=== PATIENT | male | born 1970 | race Two or more races ===

== ENCOUNTER → 2025-03-14 | Outpatient (CLI) | payer MEDICAID ==
[~2025-03-14] VITALS: Ht 165.1 cm; Wt 54.4 kg
[~2025-03-14] MED LIST: REGADENOSON 0.4 MG/5 ML SYRG IV ONE
--- NOTE | 2025-03-14 12:55 | DVHSR ---
APPROVED REPORT Exam: Nuclear Stress Test BMI: 0 Stress Test Details HR Max Heart Rate (APMHR): 165.190209 bpm Target HR (85% APMHR): 140.553280 bpm BP ECG Stress ECG Conclusion lvef 55% inferior wall mild rerversible defect gi artifact noted NM EXAM: Myocardial Perfusion REST/STRESS Imaging Protocol: Rest Tc-99m/Stress Tc-99m 1 day Resting Data Rest SPECT myocardial perfusion imaging was performed in supine position 45 minutes following the int ravenous injection of 11.5 mCi of Tc-99m Sestamibi. Time of rest injection: 09:15 Date: 03/14/2025 Time of rest imagin:00 Date: 03/14/2025 Administration Route: IV Administration Site: Left AC Pharmacologic Stress Pharmacologic stress test was performed by injecting Regadenoson 0.4 mg IV push followed by the intra venous injection of 30.9 mCi of Tc-99m Sestamibi. Time of stress injection: 10:40 Date: 03/14/2025 Time of stress imagin:10 Date: 03/14/2025 Administration Route: IV Administration Site: Left AC Gated Stress SPECT was performed 90 minutes after stress injection. The images were gated to evaluate regional wall motion and calculate left ventricular ejection fracti on. Stress only was performed in the Supine position. Study Quality Study: false Nuclear Conclusion Nuclear Findings: positive for ischemia lvef 55% inferior wall mild rerversible defect gi artifact noted
== END | disposition home or self-care (01) ==
LOC: XYW 09:54
PROVIDERS: ATTEND Specialist
DX: I25.9 Chronic ischemic heart disease, unspecified (principal); R07.9 Chest pain, unspecified; R00.2 Palpitations; I10 Essential (primary) hypertension; R42 Dizziness and giddiness
CPT/HCPCS: 78452; 93017; A9500; J2785

== ENCOUNTER 2025-04-21 23:47 | Inpatient (IN) | payer MEDICAID ==
[~2025-04-21] VITALS: Ht 167.6 cm; Wt 60.5 kg
[~2025-04-21 23:47] MED LIST changes: +ATOR20TA50 PO; -REGADENOSON 0.4 MG/5 ML SYRG IV ONE; +SPIR25TA8 PO; +TRIA37.586 PO
[2025-04-22 00:09] LABS: Hemoglobin 13.9 g/dL (13.5-17.5); Nucleated Red Blood Cells % 0.1 %
[2025-04-22 00:11] LABS: Hematocrit 41.8 % (41.0-53.0); Mean Corpuscular Hemoglobin 33.8 pg (28.0-32.0); Mean Corpuscular Volume 101.6 fL (80.0-100.0)
[2025-04-22 00:20] LABS: Chloride 102 mmol/L (98-107); Potassium 3.5 mmol/L (3.5-5.1); Sodium 139 mmol/L (136-145)
[2025-04-22 00:21] LABS: Anion Gap 10 (5-15); Calcium 9.1 mg/dL (8.7-10.4); Carbon Dioxide 27 mmol/L (20-31)
[2025-04-22 00:26] LABS: BUN/Creatinine Ratio 14.3 (10.0-20.0); Blood Urea Nitrogen 10 mg/dL (9-23); Glucose 104 mg/dL (74-106)
--- NOTE | 2025-04-22 00:48 | DVH ---
CHEST RADIOGRAPH Indication: cp Technique: Single frontal view of the chest was obtained COMPARISON: None FINDINGS: Lines and Tubes: None Lungs: Clear Pleura: No effusion. No pneumothorax. Cardiomediastinal contours: Unremarkable Bones: Unremarkable IMPRESSION: 1. No acute disease.
--- NOTE | 2025-04-22 03:46 | ED.PDOC ---
HPI Comments 55-year-old male with a history of hypertension, CAD and CHF brought in by EMS from home complaining of chest pain and epigastric pain. Patient states the chest pain started this morning around 930, described as pinching, intermittent, left-sided, associated with shortness a breath, nausea and vomiting. Patient also reports ongoing epigastric pain which is described as pressure-like, worse after eating, radiating to the mid esophageal region, and states that it feels like food does not go down and become stuck after he eats. He denies diarrhea, constipation or dysuria. EMS administered aspirin 325 mg p.o. and sublingual nitroglycerin which transiently improved the patient's chest pain, however patient states the chest pain has returned. Chief Complaint: Chest Pain Time Seen by MD: 00:00 Reviewed Notes: Nurses Notes Allergies: Coded Allergies: NO KNOWN ALLERGIES (Unverified , 03/14/25) Information Source: Patient Mode of Arrival: EMS Severity: Moderate Timing: Hours Duration: Since onset Past Medical History PAST MEDICAL HISTORY: CAD, CHF, HTN Past Medical History (Other): Gallbladder polyps Family History Family History: Reviewed,noncontributory to illness Social History Smoker: Non-Smoker Alcohol: Denies ETOH Use Drugs: Denies Drug Use Lives In: Home Constitutional: denies: chills, diaphoresis, fatigue, fever, malaise, sweats, weakness, others EENTM: denies: blurred vision, double vision, ear bleeding, ear discharge, ear drainage, ear pain, ear ringing, eye pain, eye redness, hearing loss, mouth pain, mouth swelling, nasal discharge, nose bleeding, nose congestion, nose pain, photophobia, tearing, throat pain, throat swelling, voice changes, others Respiratory: reports: SOB at rest, shortness of breath; denies: cough, h emoptysis, orthopnea, SOB with excertion, stridor, wheezing, others Cardiovascular: reports: chest pain; denies: dizzy spells, diaphoresis, Dyspnea on exertion, edema, irregular heart beat, left arm pain, lightheadedness, palpitations, PND, syncope, others Gastrointestinal: reports: nausea, vomiting; denies: abdomen distended, abdominal pain, blood streaked bowels, constipated, diarrhea, dysphagia, dif ficulty swallowing, hematemesis, melena, poor appetite, poor fluid intake, rectal bleeding, rectal pain, others Genitourinary: denies: burning, dysuria, flank pain, frequency, hematuria, incontinence, penile discharge, penile sore, pain, testicle pain, testicle swelling, urgency, others Neurological: denies: dizziness, fainting, headache, left sided numbness, left sided weakness, numbness, paresthesia, pre-existing deficit, right sided numbness, right sided weakness, seizure, speech problems, tingling, tremors, weakness, others Musculoskeletal: denies: back pain, gout, joint pain, joint swelling, muscle pain, muscle stiffness, neck pain, others Integumetry: denies: bruises, change in color, change in hair/nails, dryness, laceration, lesions, lumps, rash, wounds, others Allergic/Immunocompromised: denies: Difficulty Healing, Frequent Infections, Hives, Itching, others Hematologic/Lymphatic: denies: anemia, blood clots, easy bleeding, easy bruising, swollen glands, others Endocrine: denies: excessive hunger, excessive sweating, excessive thirst, excessive urination, flushing, intolerance to cold, intolerance to heat, unexplained weight gain, unexplained weight loss, others All Other Systems: Reviewed and Negative (Comprehensive systems review obtained and negative except for what is stated in the HPI.) Physical Exam General Appearance: No Apparent Distress HEENT: Other (Pupils and face symmetric. Moist mucous membranes.) Neck: Full Range of Motion, Normal Inspection Respiratory: Lungs Clear, No Accessory Muscle Use, No Respiratory Distress, Normal Breath Sounds Cardiovascular: No Edema, No JVD, Regular Rate/Rhythm Breast Exam: Deferred Gastrointestinal: Epigastric, Soft, Tenderness (Mild epigastric tenderness to palpation) Genitalia: Deferred Pelvic: Deferred Rectal: Deferred Extremities: Normal inspection, Normal range of motion, Non-tender, No pedal edema Neurologic: Alert (Oriented x4), Normal Affect, Normal Mood, Other (Ambulatory) Cerebellar Function: NOT DONE Reflexes: NOT DONE Skin: Dry, Normal Color, Warm Lymphatic: NOT DONE EKG EKG : Comments Sinus rhythm, rate 70, normal NH and QRS intervals, QTC 484, normal axis, normal QRS, nonspecific T change Was a procedure done? Was a procedure done?: No CP Differential Dx Differential Diagnosis: Angina, Anxiety / Panic Attack, Heart Failure, [place], Pulmonary Embolus Differential Diagnosis: Chest Wall Pain, Esophageal reflux/spasm, Gastritis, Pericarditis, Pneumonia X-Ray, Labs, Meds, VS Vital Signs Date Time Temp Pulse Resp B/P (MAP) Pulse Ox O2 Delivery O2 Flow Rate FiO2 04/21/25 23:53 70 04/21/25 23:53 98.7 68 17 162/103 98 98.7 Lab Test 04/22/25 00:44 04/22/25 00:00 Range/Units Troponin I High Sensitivity 24 26 </=54 ng/L White Blood Count 9.0 4.4-10.8 10^3/uL Red Blood Count 4.11 L 4.5-5.90 10^6/uL Hemoglobin 13.9 13.5-17.5 g/dL Hematocrit 41.8 41.0-53.0 % Mean Corpuscular Volume 101.6 H 80.0-100.0 fL Mean Corpuscular Hemoglobin 33.8 H 28.0-32.0 pg Mean Corpuscular Hemoglobin Concent 33.3 32.0-36.0 g/dL Red Cell Distribution Width 16.8 H 11.8-14.3 % Platelet Count 366 140-450 10^3/uL Mean Platelet Volume 6.6 L 6.9-10.8 fL Neutrophils (%) (Auto) 68.5 37.0-80.0 % Lymphocytes (%) (Auto) 23.7 10.0-50.0 % Monocytes (%) (Auto) 5.6 0.0-12.0 % Eosinophils (%) (Auto) 0.1 0.0-7.0 % Basophils (%) (Auto) 2.1 H 0.0-2.0 % Neutrophils # (Auto) 6.2 1.6-8.6 10 ^3/uL Lymphocytes # (Auto) 2.1 0.4-5.4 10 ^3/uL Monocytes # (Auto) 0.5 0-1.3 10 ^3/uL Eosinophils # (Auto) 0 0-0.8 10 ^3/uL Basophils # (Auto) 0.2 0-0.2 10 ^3/uL Nucleated Red Blood Cells 0.1 % Sodium Level 139 136-145 mmol/L Potassium Level 3.5 3.5-5.1 mmol/L Chloride Level 102 98-107 mmol/L Carbon Dioxide Level 27 20-31 mmol/L Anion Gap 10 5-15 Blood Urea Nitrogen 10 9-23 mg/dL Creatinine 0.70 0.700-1.30 mg/dL Glomerular Filtration Rate Calc 108 >90 mL/min BUN/Creatinine Ratio 14.3 10.0-20.0 Serum Glucose 104 74-106 mg/dL Calcium Level 9.1 8.7-10.4 mg/dL B-Type Natriuretic Peptide 315.75 0-100 pg/mL Lipase 35 12-53 U/L PROCEDURE(s): CXRP - CHEST PORTABLE REASON: cp ORDER NUMBER(s): [id number], ACCESSION NUMBER(s): [id number] CHEST RADIOGRAPH Indication: cp Technique: Single frontal view of the chest was obtained COMPARISON: None FINDINGS: Lines and Tubes: None Lungs: Clear Pleura: No effusion. No pneumothorax. Cardiomediastinal contours: Unremarkable Bones: Unremarkable IMPRESSION: 1. No acute disease. X-Ray, Labs, Meds, VS Comment 55-year-old male with a history of CAD, CHF, hypertension and gallbladder polyps brought in by EMS from home complaining of chest pain. Patient also reports epigastric pain and the sensation that food becomes stuck in his esophagus after eating. Vitals remarkable for BP 162/103 Exam remarkable for very mild epigastric tenderness to palpation Rhythm strip independently interpreted by me: Sinus rhythm, rate 70, no ectopy. Chest x-ray unremarkable CBC and basic metabolic panel unremarkable, BNP 315.75, 2 serial troponins negative, lipase pending Patient treated with the following in the ED: Nitro bid 1/2 inch to chest wall, morphine 4 mg IV, Zofran 4 mg IV, Protonix 40 mg IV On re-evaluation, pain has improved. Vitals were stable. Plan is to admit the patient for Cardiology evaluation and possible GI evaluation. Time of 1ST Reevaluation: 03:45 Reevaluation 1ST: Unchanged Patient Education/Counseling: Diagnosis, Treatment Family Education/Counseling: No Family Present SEPSIS Sepsis Screen Date sepsis recognized/suspect: Apr 22, 2025 Time Sepsis recognized/suspect: 2252 Recent Procedure: No On Antibiotic Therapy: No Respiratory Rate >20: No Heart Rate >90: No Temp<36 C (96.8 F) or >38.3 C: No SBP <90 or MAP <65 mmHG: No New Acute Mental Status Change: No Is the patient on CPAP, BIPAP,: No Physician Orders Electrocardigram (04/21/25 23:50) Electrocardigram (04/22/25 00:50) Electrocardigram (04/22/25 02:50) Chest Portable (04/22/25 00:00) Vital Signs Date Time Temp Pulse Resp B/P (MAP) Pulse Ox O2 Delivery O2 Flow Rate FiO2 04/21/25 23:53 70 04/21/25 23:53 98.7 68 17 162/103 98 98.7 Laboratory Tests Test 04/22/25 00:00 White Blood Count 9.0 10^3/uL (4.4-10.8) Departure 1 Departure Time of Disposition: 03:40 Impression: Primary Impression: Chest pain with high risk for cardiac etiology Additional Impression: Epigastric pain Disposition: ADMITTED INPATIENT Admit to: [facility] Condition: Guarded Critical Care Note Critical Care Time?: No Stability Stability form required: No Heart Score Heart Score: Heart Score Response (Comments) Value History Moderate Suspicious 1 EKG Repolarization Disturb 1 Age 45-64 1 Risk Factors >3 or Hx ASHD 2 Troponin Normal limit 0 Total 5 I personally scribed for CHRISTINA KOCH MD ([email or web address]) on 04/22/25 at 04:00. Electronically submitted by Alex Plunkett ([facility]). I personally scribed for CHRISTINA KOCH MD ([email or web address]) on 04/22/25 at 05:27. Electronically submitted by Alex Plunkett ([facility]). CHRISTINA KOCH MD Apr 22, 2025 03:46
[2025-04-22] MEDS: NITROGLYCERIN 2% OINT 1GM PKG TD ONE (12:26)
[2025-04-22] MEDS: ONDANSETRON HCL 4 MG/2 ML VIAL IV ONE (12:38)
[2025-04-22] MEDS: PANTOPRAZOLE 40 MG/10 ML VIAL INJ IV ONE (12:39)
[2025-04-22] MEDS: MORPHINE SULFATE 4 MG/ML SYR/VIAL IV ONE (12:40)
[2025-04-22] MEDS ORDERED: MORPHINE SULFATE INJ 2 MG/ml SYRG IV PRN (13:30)
[2025-04-22] MEDS ORDERED: NITROGLYCERIN 0.4 MG SL TAB SL PRN (13:30)
[2025-04-22] MEDS ORDERED: ACETAMINOPHEN 325 MG TAB PO PRN (13:30)
[2025-04-22] MEDS: SODIUM CHLORIDE 0.9% 1,000 ML IV SCH (14:15)
[2025-04-22] MEDS ORDERED: METO5TAB2 PO (14:37)
[2025-04-22] MEDS ORDERED: OMEP1CAP70 PO (14:37)
[2025-04-22] MEDS ORDERED: EMPA1TAB PO (14:37)
[2025-04-22] MEDS ORDERED: METO25TA93 PO (14:37)
[2025-04-22] MEDS ORDERED: AMLO1TAB23 PO (14:37)
[2025-04-22] MEDS ORDERED: ASPI-325 PO (14:37)
--- NOTE | 2025-04-22 14:40 | DVHHP2 ---
History of Present Illness Reason for Visit: Chest pain History of Present Illness This is a 55-year-old male with history of hypertension, CHF and CAD presents to ED via EMS from home complaining of chest pain associated with epigastric discomfort around 930 this morning. He describes it as intermittent pinching to the left side associated with shortness of breath, nausea and vomiting. He states that his pain is worse after eating radiating to the mid esophageal region and states that it feels like food does not go down and becomes stuck after he eats. He denies previous cardiac workup and recent injury or trauma to his chest. He is concerned about his symptoms as this has been occurring intermittently for the past few months. Due to this the patient will be admitted under hospitalist care to the medical-surgical unit for further evaluation and recommendation. The patient denies fever, chills, headache, dizziness, palpitation, diarrhea, constipation and other associated symptoms. The plan has been discussed with the patient in which all questions concerns have been addressed Cardiovascular: CAD, CHF, HTN Past Surgical History: None Family History: None Smoke: No ALCOHOL: none Drugs: None Lives: with Family Domestic Violence: Neg Review of Systems Respiratory: Shortness of breath Cardiovascular: Chest Pain Gastrointestinal: Nausea, Vomiting, Abdominal Pain Allergies: Coded Allergies: NO KNOWN ALLERGIES (Unverified , 03/14/25) Medications Current Medications Medications Dose Ordered Sig/Solis Route Start Time Stop Time Status Last Admin Dose Admin Sodium Chloride 1,000 ml @ 60 mls/hr [id number] IV 04/22/25 13:30 Enoxaparin Sodium 40 mg DAILY SC 04/23/25 10:00 Acetaminophen 650 mg Q6HP PRN PO 04/22/25 13:30 Nitroglycerin 0.4 mg Q5MINP PRN SL 04/22/25 13:30 Morphine Sulfate 2 mg Q30M PRN IV 04/22/25 13:30 Aspirin 81 mg DAILY PO 04/23/25 10:00 Exam Vital Signs Vital Signs Date Time Temp Pulse Resp B/P (MAP) Pulse Ox O2 Delivery O2 Flow Rate FiO2 04/22/25 14:15 60 16 97 Room Air 04/22/25 14:15 97.8 141/90 (107) 97.8 General Appearance: Alert, Oriented X3, Cooperative, No acute distress HEENT: Atraumatic, PERRLA, Mucous membr. moist/pink Respiratory: Clear to auscultation, Normal air movement Cardiovascular: Normal S1, Normal S2, No murmurs Abdominal: Normal bowel sounds, Soft, No tenderness, No hepatospenomegaly, No masses Extremities: No clubbing, No cyanosis, No edema, Normal pulses, No tenderness/swelling Skin: No rashes, No breakdown Neuro: Normal gait, Normal speech, Strength at 5/5 X4 ext, Normal tone, Sensation intact, Cranial nerves 3-12 NL Psych/Mental Status: Mental status NL, Mood NL Labs/Xrays Labs Test 04/22/25 00:44 04/22/25 00:00 Range/Units Troponin I High Sensitivity 24 </=54 ng/L White Blood Count 9.0 4.4-10.8 10^3/uL Red Blood Count 4.11 L 4.5-5.90 10^6/uL Hemoglobin 13.9 13.5-17.5 g/dL Hematocrit 41.8 41.0-53.0 % Mean Corpuscular Volume 101.6 H 80.0-100.0 fL Mean Corpuscular Hemoglobin 33.8 H 28.0-32.0 pg Mean Corpuscular Hemoglobin Concent 33.3 32.0-36.0 g/dL Red Cell Distribution Width 16.8 H 11.8-14.3 % Platelet Count 366 140-450 10^3/uL Mean Platelet Volume 6.6 L 6.9-10.8 fL Neutrophils (%) (Auto) 68.5 37.0-80.0 % Lymphocytes (%) (Auto) 23.7 10.0-50.0 % Monocytes (%) (Auto) 5.6 0.0-12.0 % Eosinophils (%) (Auto) 0.1 0.0-7.0 % Basophils (%) (Auto) 2.1 H 0.0-2.0 % Neutrophils # (Auto) 6.2 1.6-8.6 10 ^3/uL Lymphocytes # (Auto) 2.1 0.4-5.4 10 ^3/uL Monocytes # (Auto) 0.5 0-1.3 10 ^3/uL Eosinophils # (Auto) 0 0-0.8 10 ^3/uL Basophils # (Auto) 0.2 0-0.2 10 ^3/uL Nucleated Red Blood Cells 0.1 % Sodium Level 139 136-145 mmol/L Potassium Level 3.5 3.5-5.1 mmol/L Chloride Level 102 98-107 mmol/L Carbon Dioxide Level 27 20-31 mmol/L Anion Gap 10 5-15 Blood Urea Nitrogen 10 9-23 mg/dL Creatinine 0.70 0.700-1.30 mg/dL Glomerular Filtration Rate Calc 108 >90 mL/min BUN/Creatinine Ratio 14.3 10.0-20.0 Serum Glucose 104 74-106 mg/dL Calcium Level 9.1 8.7-10.4 mg/dL B-Type Natriuretic Peptide 315.75 0-100 pg/mL Lipase 35 12-53 U/L ORDERING PHYSICIAN: CHRISTINA KOCH MD PROCEDURE(s): CXRP - CHEST PORTABLE REASON: cp ORDER NUMBER(s): [id number], ACCESSION NUMBER(s): [id number] CHEST RADIOGRAPH Indication: cp Technique: Single frontal view of the chest was obtained COMPARISON: None FINDINGS: Lines and Tubes: None Lungs: Clear Pleura: No effusion. No pneumothorax. Cardiomediastinal contours: Unremarkable Bones: Unremarkable IMPRESSION: 1. No acute disease. ATED BY: KAMARI KENT MD DICTATED DATE/TIME: 04/22/2545 SIGNED BY: KAMARI KENT MD SIGNED DATE/TIME: 04/22/2545 CC: SEPSIS Sepsis Screen Date sepsis recognized/suspect: Apr 22, 2025 Time Sepsis recognized/suspect: 2252 Recent Procedure: No On Antibiotic Therapy: No Respiratory Rate >20: No Heart Rate >90: No Temp<36 C (96.8 F) or >38.3 C: No SBP <90 or MAP <65 mmHG: No New Acute Mental Status Change: No Is the patient on CPAP, BIPAP,: No Physician Orders 2 Gm Sodium Diet (04/22/25 Dinner) Sodium Chloride 0.9% (04/22/25 13:30) Enoxaparin Sodium (Lovenox) (04/23/25 10:00) Complete Blood Count (04/23/25 04:00) Comprehensive Metabolic Panel (04/23/25 04:00) Echo 2d Mode Cardiac Dop (04/22/25 13:30) Condition: Fair (04/22/25 13:30) Acetaminophen Tablet (Tylenol Tablet) (04/22/25 13:30) Bedrest With Bathroom Privileg (04/22/25 13:30) Nitroglycerin Sublingual (Ntrostat Subli (04/22/25 13:30) Morphine Sulfate Injection (04/22/25 13:30) Stat Ekg For Chest Pain (04/22/25 13:30) Notify Md Of Changes From Base (04/22/25 13:30) Stranding Supervisor For 24 Hours (04/22/25 13:30) Emergency Dysrhythmia Protocol (04/22/25 13:30) Rhythm Strips Once Every Shift (04/22/25 13:30) Oxygen By Nasal Cannula (04/22/25 13:30) Admit (04/22/25 13:33) Aspirin Tablet (04/23/25 10:00) Vital Signs Date Time Temp Pulse Resp B/P (MAP) Pulse Ox O2 Delivery O2 Flow Rate FiO2 04/22/25 14:15 60 16 97 Room Air 04/22/25 14:15 97.8 60 16 141/90 (107) 97 97.8 04/22/25 13:26 98.4 71 16 136/97 (110) 98 98.4 04/22/25 13:25 136/97 04/22/25 13:24 71 16 136/97 04/22/25 12:40 70 18 154/100 04/22/25 12:26 154/100 04/22/25 12:04 97.8 70 16 154/100 (118) 100 97.8 04/22/25 12:04 70 16 100 Room Air 04/22/25 09:58 98.1 83 16 127/91 (103) 98.1 Medications Medications Dose Ordered Sig/Solis Route Start Time Stop Time Status Last Admin Dose Admin Aspirin 81 mg ONCE ONCE PO 04/22/25 13:45 04/22/25 13:46 DC 04/22/25 14:15 81 MG Morphine Sulfate 4 mg ONCE ONCE IV 04/22/25 03:45 04/22/25 03:46 DC 04/22/25 12:40 4 MG Nitroglycerin 1 pkg ONCE ONCE TD 04/22/25 03:45 04/22/25 03:46 DC 04/22/25 12:26 1 PKG Ondansetron HCl 4 mg ONCE ONCE IV 04/22/25 03:45 04/22/25 03:46 DC 04/22/25 12:38 4 MG Pantoprazole Sodium 40 mg ONCE ONCE IV 04/22/25 03:45 04/22/25 03:46 DC 04/22/25 12:39 40 MG Assessment/Plan Assessment/Plan Chest pain-patient brought in via EMS with complaint of intermittent chest pain associated with shortness of breath, nausea, vomiting Describes chest pain as pressure-like, worse after eating, radiating to mid esophageal region and states that it feels like food does not go down and become stuck after he eats No recent injury or trauma to chest and no prior cardiac history/workup Upon evaluation denies chest pain denies shortness of breath The patient received aspirin 325 mg p.o. and sublingual nitro The patient is requesting to be admitted Admit to telemetry unit Reviewed CBC which is normal Reviewed BMP which is normal Reviewed BNP which is normal Lipase normal Cardiac enzyme negative x2 Reviewed chest x-ray which is normal Echocardiogram pending IV hydration Aspirin now and daily Consider to consult Cardiology for further evaluation and recommendation if ne eded CHF BNP is normal Echocardiogram pending Hypertension-uncontrolled Continue antihypertensive agent Continue to monitor Reconcile home medication DVT prophylaxis PUD prophylaxis Labs in a.m. Discussed plan of care with the patient in which all questions concerns have been addressed Plan discussed with: Patient My Orders Orders - LONNIE SCRUGGS PUBLIC ADDRESS ANNOUNCER Procedure Category Date Status Time 2 Gm Sodium Diet DIET 04/22/25 Transmitted Dinner Sodium Chloride 0.9% PHA 04/22/25 In Process 13:30 Enoxaparin Sodium PHA 04/23/25 In Process (Lovenox) 10:00 Complete Blood Count LAB 04/23/25 Verified 04:00 Comprehensive LAB 04/23/25 Verified Metabolic Panel 04:00 Echo 2d Mode Cardiac US 04/22/25 Logged DOP 13:30 Condition: Fair [place] 04/22/25 In Process 13:30 Acetaminophen Tablet PHA 04/22/25 In Process (Tylenol Tablet) 13:30 Bedrest With Bathroom [place] 04/22/25 In Process Privileg 13:30 Nitroglycerin PHA 04/22/25 In Process Sublingual (Ntrostat 13:30 Morphine Sulfate PHA 04/22/25 In Process Injection 13:30 Stat Ekg For Chest [facility] 04/22/25 In Process Pain 13:30 Notify Of Changes [facility] 04/22/25 In Process From Base 13:30 Stranding Supervisor For [facility] 04/22/25 In Process 24 Hours 13:30 Emergency Dysrhythmia [facility] 04/22/25 In Process Protocol 13:30 Rhythm Strips Once [facility] 04/22/25 In Process Every Shift 13:30 Oxygen By Nasal RT 04/22/25 Transmitted Cannula 13:30 Admit ADMIT 04/22/25 Transmitted 13:33 Aspirin Tablet PHA 04/23/25 In Process 10:00 Date of Service: Apr 22, 2025 Billing Provider: LONNIE SCRUGGS Common Visit Codes: [id number] INP/OBS CARE (HIGH) LONNIE SCRUGGS Apr 22, 2025 14:40
[2025-04-22 15:23] LABS: Triglycerides 134 mg/dL (< 150)
[2025-04-22 15:25] LABS: Cholesterol 237 mg/dL (< 200); HDL Cholesterol 112 mg/dL (40-59)
[2025-04-22 20:04] VITALS: PULSE 102; RESP 20; O2SAT 97
[2025-04-22] MEDS: ATORVASTATIN 20 MG TAB PO SCH (21:23)
[2025-04-22 22:39] VITALS: BP 120/77; PULSE 61; RESP 18; TEMP 98.1; O2SAT 100
[2025-04-22 23:11] VITALS: BP_SYST 120; BP_SYST 152; BP_DIAS 77; BP_DIAS 90; PULSE 61; PULSE 66; RESP 18; TEMP 98; O2SAT 100
[2025-04-23] VITALS (10 sets, daily range): BP systolic 101–177; BP diastolic 59–90; PULSE 57–90; RESP 16–20; TEMP 97.3–98; O2SAT 97–100
--- NOTE | 2025-04-23 04:43 | DVHINCON2 ---
Date of service: Apr 23, 2025 Referring Physician Emerald Reason for Consultation Chest Pain History of Present Illness This is a 55-year old male known outside to our practice who initially presented with reported chest pain. Patient himself reports the chest pain had been localized the left chest region and had been provoked with exertion while cleaning which EMS was called for further evaluation. Patient had been administered 325mg Aspirin and SL Nitroglycerin by EMS which reports indicate and transiently improved the reported chest pain. Patient was later transported to this facility for further evaluation and management. At time of consultation there is no EKG available for review however ED provider note mentions rhythm strip had revealed sinus rhythm at 70bpm with no ectopy. Serial HS troponin trend had been found negative (26, 24). LDL was found to be 101 which patient himself reports intolerance to previous Atorvastatin therapy and had subsequently discontinued therapy himself. Initial BNP level had been found elevated at 315.75 which subsequent chest imaging had revealed no evidence for acute cardiopulmonary abnormalities. Of note, patient did undergo previous ischemic workup by NST 03/14/2025 and at that time had revealed evidence for reversible myocardial ischemia which subsequent outpatient based cardiac catheterization had been requested (remains pending at present). Echocardiogram 03/21/2025 (outpatient) had revealed a reduced LVEF of 40-45% which he had been initiated on GDMT. At present, Echocardiogram 04/23/25 has revealed an LVEF of 45%. At present, denies any shortness of breath, palpitations, dizziness, syncope, orthopnea, paroxysmal nocturnal dyspnea or any further cardiac related symptoms. Cardiology services were subsequently involved by primary team request for cardiac aspects of care. Past medical history includes systolic heart failure, hypertension, hyperlipidemia, GERD. Patient is an active tobacco smoker. Nuclear Stress Test: ([facility] 03/14/2025) nuclear Findings: positive for ischemia. lvef 55%. inferior wall mild rerversible defect. gi artifact noted Echocardiogram: (Outpatient 03/21/2025) LVEF of 40-45%. Borderline concentric left ventricular hypertrophy. Mild hypokinesis of left ventricle. Right atrium mildly enlarged. Interatrial septal aneurysm. Mild mitral regurgitation. Minimal mitral valve prolapse. Mild tricuspid regurgitation. Right ventricular systolic pressure of 34mmHg. There is some calcification of the pericardium. Echocardiogram: ([facility] 04/23/2025) lvef 45%. septum is hypokinetic. normal rv function. atrium enlarged Past Medical History Reviewed Past Surgical History Reviewed Family History: CHF (congestive heart failure) G8 MOTHER FH: peptic ulcer disease G8 FATHER FH: thyroid disease G8 MOTHER Hypertension G8 MOTHER Allergies: Coded Allergies: NO KNOWN ALLERGIES (Unverified , 03/14/25) Home Meds Reported Medications Empagliflozin (Jardiance) 10 Mg Tab, 1 TAB PO DAILY 04/22/25 Omeprazole (Omeprazole Dr) 20 Mg Cap, 1 CAP PO DAILY 04/22/25 Metoclopramide Hcl (Metoclopramide Hcl) 5 Mg Tab, 1 TAB PO Q6HPRN PRN 04/22/25 Aspirin (Aspirin Low Dose) 81 Mg Tab, 1 TAB PO DAILY 04/22/25 Amlodipine Besylate (Amlodipine Besylate) 10 Mg Tab, 1 TAB PO DAILY 04/22/25 Atorvastatin Calcium (ATORVASTATIN CALCIUM) 20 Mg Tab, 1 TAB PO 04/22/25 Spironolactone (Spironolactone) 25 Mg Tab, TAB PO 04/22/25 Metoprolol Succinate (Metoprolol Succinate Er) 25 Mg Tab, 1 TAB PO DAILY 04/22/25 Current Medications Current Medications Medications (Trade) Dose Ordered Sig/Solis Route PRN Reason Start Time Stop Time Status Last Admin Sodium Chloride 1,000 ml @ 60 mls/hr [id number] IV 04/22/25 13:30 04/23/25 00:40 Enoxaparin Sodium (Lovenox) 40 mg DAILY SC 04/23/25 10:00 Acetaminophen (Tylenol Tablet) 650 mg Q6HP PRN PO PAIN SCALE 1-3 OR TEMP>100.4 04/22/25 13:30 Nitroglycerin (Ntrostat Sublingual) 0.4 mg Q5MINP PRN SL FOR CHEST PAIN 04/22/25 13:30 Morphine Sulfate 2 mg Q30M PRN IV FOR CHEST PAIN 04/22/25 13:30 Aspirin 81 mg DAILY PO 04/23/25 10:00 Aspirin (Ecotrin Enteric Coated Tablet) 81 mg DAILY PO 04/23/25 10:00 04/22/25 15:10 DC Atorvastatin Calcium (Lipitor) 20 mg HS PO 04/22/25 22:00 Empaglifozin (Jardiance) 10 mg DAILY PO 04/23/25 10:00 Spironolactone (Aldactone) 25 mg DAILY PO 04/23/25 10:00 Amlodipine Besylate (Norvasc Tablet) 10 mg DAILY PO 04/23/25 10:00 Metoprolol Succinate (Toprol Xl) 25 mg DAILY PO 04/23/25 10:00 Pantoprazole Sodium (Protonix Tablet) 40 mg DAILY PO 04/23/25 10:00 Review of Systems A 14-point review of systems is negative unless otherwise noted above Vital Signs Vital Signs Date Time Temp Pulse Resp B/P (MAP) Pulse Ox O2 Delivery O2 Flow Rate FiO2 04/23/25 01:00 97.9 66 20 101/59 (73) 100 97.9 04/23/25 00:27 Room Air* 0 21 Physical Exam Heart: S1 and S2 regular. The patient is in sinus rhythm. Lungs: Clear to auscultation Abdomen: Benign. Extremities: Distal pulses palpable, 2+. No evidence for peripheral edema Labs/Diagnostic Data Labs Test 04/22/25 04:44 04/22/25 00:44 04/22/25 00:00 Range/Units Triglycerides Level 134 < 150 mg/dL Cholesterol Level 237 H < 200 mg/dL LDL Cholesterol 101 H < 100 mg/dL HDL Cholesterol 112 H 40-59 mg/dL Troponin I High Sensitivity 24 </=54 ng/L White Blood Count 9.0 4.4-10.8 10^3/uL Red Blood Count 4.11 L 4.5-5.90 10^6/uL Hemoglobin 13.9 13.5-17.5 g/dL Hematocrit 41.8 41.0-53.0 % Mean Corpuscular Volume 101.6 H 80.0-100.0 fL Mean Corpuscular Hemoglobin 33.8 H 28.0-32.0 pg Mean Corpuscular Hemoglobin Concent 33.3 32.0-36.0 g/dL Red Cell Distribution Width 16.8 H 11.8-14.3 % Platelet Count 366 140-450 10^3/uL Mean Platelet Volume 6.6 L 6.9-10.8 fL Neutrophils (%) (Auto) 68.5 37.0-80.0 % Lymphocytes (%) (Auto) 23.7 10.0-50.0 % Monocytes (%) (Auto) 5.6 0.0-12.0 % Eosinophils (%) (Auto) 0.1 0.0-7.0 % Basophils (%) (Auto) 2.1 H 0.0-2.0 % Neutrophils # (Auto) 6.2 1.6-8.6 10 ^3/uL Lymphocytes # (Auto) 2.1 0.4-5.4 10 ^3/uL Monocytes # (Auto) 0.5 0-1.3 10 ^3/uL Eosinophils # (Auto) 0 0-0.8 10 ^3/uL Basophils # (Auto) 0.2 0-0.2 10 ^3/uL Nucleated Red Blood Cells 0.1 % Sodium Level 139 136-145 mmol/L Potassium Level 3.5 3.5-5.1 mmol/L Chloride Level 102 98-107 mmol/L Carbon Dioxide Level 27 20-31 mmol/L Anion Gap 10 5-15 Blood Urea Nitrogen 10 9-23 mg/dL Creatinine 0.70 0.700-1.30 mg/dL Glomerular Filtration Rate Calc 108 >90 mL/min BUN/Creatinine Ratio 14.3 10.0-20.0 Serum Glucose 104 74-106 mg/dL Calcium Level 9.1 8.7-10.4 mg/dL B-Type Natriuretic Peptide 315.75 0-100 pg/mL Lipase 35 12-53 U/L Plan/Recommendation ASSESSMENT: This is a 55-year old male known outside to our practice who initially presented with reported chest pain. Patient himself reports the chest pain had been localized the left chest region and had been provoked with exertion while cleaning which EMS was called for further evaluation. Patient had been administered 325mg Aspirin and SL Nitroglycerin by EMS which reports indicate and transiently improved the reported chest pain. Patient was later transported to this facility for further evaluation and management. At time of consultation there is no EKG available for review however ED provider note mentions rhythm strip had revealed sinus rhythm at 70bpm with no ectopy. Serial HS troponin trend had been found negative (26, 24). LDL was found to be 101 which patient himself reports intolerance to previous Atorvastatin therapy and had subsequently discontinued therapy himself. Initial BNP level had been found elevated at 315.75 which subsequent chest imaging had revealed no evidence for acute cardiopulmonary abnormalities. Of note, patient did undergo previous ischemic workup by NST 03/14/2025 and at that time had revealed evidence for reversible myocardial ischemia which subsequent outpatient based cardiac catheterization had been requested (remains pending at present). Echocardiogram 03/21/2025 (outpatient) had revealed a reduced LVEF of 40-45% which he had been initiated on GDMT. At present, Echocardiogram 04/23/25 has revealed an LVEF of 45%. At present, denies any shortness of breath, palpitations, dizziness, syncope, orthopnea, paroxysmal nocturnal dyspnea or any further cardiac related symptoms. Cardiology services were subsequently involved by primary team request for cardiac aspects of care. Past medical history includes systolic heart failure, hypertension, hyperlipidemia, GERD. Patient is an active tobacco smoker. Nuclear Stress Test: ([facility] 03/14/2025) nuclear Findings: positive for ischemia. lv ef 55%. inferior wall mild rerversible defect. gi artifact noted Echocardiogram: (Outpatient 03/21/2025) LVEF of 40-45%. Borderline concentric left ventricular hypertrophy. Mild hypokinesis of left ventricle. Right atrium mildly enlarged. Interatrial septal aneurysm. Mild mitral regurgitation. Minimal mitral valve prolapse. Mild tricuspid regurgitation. Right ventricular systolic pressure of 34mmHg. There is some calcification of the pericardium. Echocardiogram: ([facility] 04/23/2025) lvef 45%. septum is hypokinetic. normal rv function. atrium enlarged Unstable angina Systolic heart failure (compensated), LVEF of 45% 04/23/2025 History of abnormal nuclear stress test Hyperlipidemia, LDL of 101 Tobacco dependence Hypertension CARDIAC SUGGESTIONS FOR MANAGEMENT: Recognizing clinical presentation, comorbidities, risk-factors, and recent positive NST, patient benefits from undergoing ischemic workup by cardiac catheterization to assess for any evidence of obstructive coronary artery disease potential warranting revascularization. Benefits, risks, and alternatives were discussed at length with the patient which he is agreeable to the plan of care. Therefore will plan for tentative cardiac catheterization with Dr. Johnson 04/24/2025. Patient to be consented and NPO status at midnight. To proceed with optimized medical therapy and risk factor modification during the interim. Plan for tentative left heart catheterization 04/24/[address] Johnson Patient to be consented and NPO status at midnight 04/24/2025 for intended procedure To proceed with optimized medical therapy and risk factor modification during the interim Proceed with GDMT for systolic heart failure as concurrent conditions permit Proceed with close observation for overt signs of fluid overload Proceed with strict intakes, outputs, and daily weights Metoprolol Succinate 25mg once daily Trial Pravastatin 40mg once daily Entresto 24-25mg twice daily Amlodipine 10mg once daily Aldactone 25mg once daily Jardiance 10mg once daily Aspirin 81mg once daily Counseled on importance of tobacco cessation Proceed with close rate and rhythm surveillance Proceed with close hemodynamic surveillance Proceed with optimized blood pressure control Transfuse to sustain HGB level above 7.0 Sustain Magnesium level greater than 2.0 Sustain Potassium level greater than 4.0 Follow up renal function and electrolytes Management of co-morbidities as per primary team On Lovenox for DVT prophylaxis On PPI for GI prophylaxis Management in telemetry Will proceed to follow from a cardiac perspective Further recommendations per clinical progression All available diagnostic labs, EKG's, and images were personally reviewed Patient's status, findings, and plan of care was reviewed and discussed with supervising physician Dr. Hwang, who is in agreement with current plan of care. Plan of care discussed with and agreed upon by patient / primary RN Prognosis: Guarded Thank you for allowing me to participate in the care of this patient. Further recommendations based on patients clinical course and progression, primary attending, and other consultants. Will continue to follow with primary attending. If you have any questions or concerns, please do not hesitate to contact me. A total of 75 minutes was spent reviewing the patient record, examining the patient, making a diagnostic and therapeutic plan, discussing this plan with medical personnel, following up on diagnostic studies and following the patient for clinical stability excluding any and all procedures. At least 50% of this time was spent in direct, [id number] contact. Plan discussed with: Patient (Patient and Primary RN ) VAMSI HOOVER FI[employer] PRE[employer]ION ENGINEER Apr 23, 2025 04:43
--- NOTE | 2025-04-23 06:16 | ECG ---
[facility] Test Date: 2025-04-23 Test Time: 06:12:47 Pat Name: KAUR BAPTISTE Department: Respiratoy Room: 0247T B Gender: M Brand Mgr: : 1970 Requested By: VAMSI HOOVER Order Number: [id number] Reading MD: Kenneth Portillo Measurements Intervals [place] Rate: 57 P: 57 CT: 119 QRS: 63 QRSD: 83 T: 73 QT: 494 QTc: 481 Interpretive Statements Pacemaker spikes or artifacts Sinus rhythm Borderline short CT interval Consider left ventricular hypertrophy Borderline prolonged QT interval Artifact in lead(s) I,II,aVR,aVL,aVF and baseline wander in lead(s) V6 Electronically Signed On 04-24-2025 18:43:23 PDT by Kenneth Portillo Please click the below link to view image of tracing.
[2025-04-23 06:45] LABS: Hemoglobin 13.6 g/dL (13.5-17.5); Nucleated Red Blood Cells % 0.1 %
[2025-04-23 06:48] LABS: Hematocrit 39.8 % (41.0-53.0); Mean Corpuscular Hemoglobin 34.7 pg (28.0-32.0); Mean Corpuscular Volume 101.9 fL (80.0-100.0)
[2025-04-23 07:08] LABS: Alanine Aminotransferase 16 U/L (7-40); Alkaline Phosphatase 48 U/L (46-116); Anion Gap 7 (5-15); BUN/Creatinine Ratio 11.8 (10.0-20.0); Calcium 9.0 mg/dL (8.7-10.4); Carbon Dioxide 29 mmol/L (20-31); Chloride 105 mmol/L (98-107); Glucose 77 mg/dL (74-106); Sodium 141 mmol/L (136-145)
[2025-04-23 07:09] LABS: Albumin 3.8 g/dL (3.2-4.8)
[2025-04-23 07:10] LABS: Bilirubin, Total 0.4 mg/dL (0.2-1.0)
[2025-04-23 07:12] LABS: Blood Urea Nitrogen 8 mg/dL (9-23); Potassium 3.3 mmol/L (3.5-5.1); Total Protein 5.6 g/dL (5.7-8.2)
[2025-04-23] MEDS ORDERED: ASPirin-EC 81 mg tab PO SCH (10:00)
[2025-04-23] MEDS: SPIRONOLACTONE 25 MG TAB PO SCH (10:18)
[2025-04-23] MEDS: PANTOPRAZOLE 40 MG TAB PO SCH ×2 (10:18→22:00)
[2025-04-23] MEDS: EMPAGLIFLOZIN 10 MG TAB PO SCH (10:18)
[2025-04-23] MEDS: METOPROLOL SUCCINATE XL 50 MG TAB PO SCH (10:20)
[2025-04-23] MEDS: ENOXAPARIN SOD 40 MG/0.4 ML SYRINGE SC SCH (10:20)
--- NOTE | 2025-04-23 12:53 | DVHSR ---
APPROVED REPORT EXAM: Two-dimensional and M-mode echocardiogram with Doppler and color Doppler. Blood Pressure: 157/90 mmHg INDICATION Chest Pain RISK FACTORS Height: 5'6", Weight: 113 DIMENSIONS LVDd (3.8-5.7cm)LA (2D)3.7 (1.9-4.0cm)Aortic Root3.0 (2.0-3.7cm) LVDs (2.5-4.0cm)LA (MM) (1.9-4.0cm)Aortic Cusp Exc1.8 (1.5-2.0cm) EF (%) 45.0 (55-70%)Rt. Atrium3.6 (1.9-4.0cm)Asc. Aorta cm IVSd (0.7-1.1cm)RV (D)3.5 (1.8-2.4cm) Mitral Valve MitralMitral Stenosis E wave0.52m/sMV Mean GR.mmHg A wave0.91m/sMV Peak GR.mmHg E/A ratio0.62D MVAcm2 DECEL [id number] 1/2 Timems Aortic Valve Aortic ValveAortic Stenosis V10.64m/Amelia Mean GR.2mmHg V21.23m/Amelia Peak GR.6mmHg LVOT Diameter1.9 (1.8-2.4cm)Doppler AVA1.47cm2 Pulmonic Valve V21.09m/s Other Information Technically limited study due to body habitus. Conclusion lvef 45% septum is hypokinetic normal rv function left atrium enlarged
[2025-04-23] MEDS: MAALOX PLUS or MAALOX 30 ML PO SCH (15:32)
[2025-04-23] MEDS ORDERED: hydrALAZINE HCL 20 MG/ML VL IV PRN (15:45)
--- NOTE | 2025-04-23 16:58 | DVHPN2 ---
Assessment/Plan Assessment/Plan progress note 55 yo M with HFrEF 40%, PUD w/ hpylori admitted for chest pain. Patient reported epigastric pain, stated he was tested for hpylori but on medrec was not currently taking any acid controller. Never been tested for eradication. Compliant with GDMT. Also reported weight loss and dysphagia. Physical exam AOx4 GIA MMM clear breath sounds s1 s2rrr abdomen soft, epigastric tenderness no LE edema labs ekg imaging reviewed assessment and plan epigastric pain likely gastritis significant weight loss HFrEF not in exacerbation chronic systolic HF HTN BPH w LUTS hx of Hpylori GI consult for EGD protonix, maalox c/w home GDMT not overloaded asa lipitor diet clear liq dvt ppx ambulatory Plan discussed with: Patient My Orders Orders - IMANI MEADOWS MD Procedure Category Date Status Time Pantoprazole Tablet PHA 04/24/25 In Process (Protonix Tablet) 06:00 Alum & Mag PHA 04/23/25 In Process Hydrox-Simethicone 14:00 Date of Service: Apr 23, 2025 Billing Provider: IMANI MEADOWS MD Common Visit Codes: [id number] INP/OBS CARE(HIGH) IMANI MEADOWS MD Apr 23, 2025 16:58
--- NOTE | 2025-04-23 21:14 | DVHINCON2 ---
Date of service: Apr 23, 2025 Referring Physician Kassandra Corbin Reason for Consultation Dysphagia weight loss and history of H.pylori History of Present Illness 55 yo M with HFrEF 40%, PUD w/ hpylori admitted for chest pain. Patient reported epigastric pain, stated he was tested for hpylori treated was not currently taking any acid controller. Never been tested for eradication.Also reported weight loss and dysphagia. GI was consulted for possible EGD Patient however has been evaluated by Cardiology and has evidence of ischemic angina unstable Past Medical History systolic heart failure, hypertension, hyperlipidemia, GERD. Patient is an active tobacco smoker. Family History: CHF (congestive heart failure) G8 MOTHER FH: peptic ulcer disease G8 FATHER FH: thyroid disease G8 MOTHER Hypertension G8 MOTHER Allergies: Coded Allergies: NO KNOWN ALLERGIES (Unverified , 03/14/25) Home Meds Reported Medications Empagliflozin (Jardiance) 10 Mg Tab, 1 TAB PO DAILY 04/22/25 Omeprazole (Omeprazole Dr) 20 Mg Cap, 1 CAP PO DAILY 04/22/25 Metoclopramide Hcl (Metoclopramide Hcl) 5 Mg Tab, 1 TAB PO Q6HPRN PRN 04/22/25 Aspirin (Aspirin Low Dose) 81 Mg Tab, 1 TAB PO DAILY 04/22/25 Amlodipine Besylate (Amlodipine Besylate) 10 Mg Tab, 1 TAB PO DAILY 04/22/25 Atorvastatin Calcium (ATORVASTATIN CALCIUM) 20 Mg Tab, 1 TAB PO 04/22/25 Spironolactone (Spironolactone) 25 Mg Tab, TAB PO 04/22/25 Metoprolol Succinate (Metoprolol Succinate Er) 25 Mg Tab, 1 TAB PO DAILY 04/22/25 Current Medications Current Medications Medications (Trade) Dose Ordered Sig/Solis Route PRN Reason Start Time Stop Time Status Last Admin Enoxaparin Sodium (Lovenox) 40 mg DAILY SC 04/23/25 10:00 04/23/25 10:20 Aspirin 81 mg DAILY PO 04/23/25 10:00 04/23/25 10:19 Aspirin (Ecotrin Enteric Coated Tablet) 81 mg DAILY PO 04/23/25 10:00 04/22/25 15:10 DC Atorvastatin Calcium (Lipitor) 20 mg HS PO 04/22/25 22:00 04/23/25 15:36 DC Empaglifozin (Jardiance) 10 mg DAILY PO 04/23/25 10:00 04/23/25 10:18 Spironolactone (Aldactone) 25 mg DAILY PO 04/23/25 10:00 04/23/25 10:18 Amlodipine Besylate (Norvasc Tablet) 10 mg DAILY PO 04/23/25 10:00 04/23/25 10:19 Metoprolol Succinate (Toprol Xl) 25 mg DAILY PO 04/23/25 10:00 04/23/25 10:20 Pantoprazole Sodium (Protonix Tablet) 40 mg DAILY PO 04/23/25 10:00 04/23/25 12:12 DC 04/23/25 10:18 Pantoprazole Sodium (Protonix Tablet) 40 mg DAILY@0600 PO 04/24/25 06:00 Al Hydrox/Mg Hydrox/Simethicone (Maalox Plus) 30 ml Q8HR PO 04/23/25 14:00 04/23/25 15:32 Sacubitril/ Valsartan (Entresto 24-26 Mg tab) 1 tab BID PO 04/23/25 22:00 Hydralazine HCl (Apresoline Injection) 10 mg Q6HP PRN IV SBP>150 04/23/25 15:45 Pravastatin Sodium (Pravachol Tablet) 40 mg HS PO 04/23/25 22:00 Vital Signs Vital Signs Date Time Temp Pulse Resp B/P (MAP) Pulse Ox O2 Delivery O2 Flow Rate FiO2 04/23/25 17:00 97.7 90 16 120/67 (84) 99 97.7 04/23/25 08:15 Room Air* 0 21 Physical Exam Physical exam AOx4 GIA MMM clear breath sounds s1 s2rrr abdomen soft, epigastric tenderness no LE edema Labs/Diagnostic Data Labs Test 04/23/25 05:28 04/22/25 04:44 04/22/25 00:44 04/22/25 00:00 Range/Units White Blood Count 7.3 4.4-10.8 10^3/uL Red Blood Count 3.91 L 4.5-5.90 10^6/uL Hemoglobin 13.6 13.5-17.5 g/dL Hematocrit 39.8 L 41.0-53.0 % Mean Corpuscular Volume 101.9 H 80.0-100.0 fL Mean Corpuscular Hemoglobin 34.7 H 28.0-32.0 pg Mean Corpuscular Hemoglobin Concent 34.0 32.0-36.0 g/dL Red Cell Distribution Width 16.7 H 11.8-14.3 % Platelet Count 288 140-450 10^3/uL Mean Platelet Volume 7.2 6.9-10.8 fL Neutrophils (%) (Auto) 48.3 37.0-80.0 % Lymphocytes (%) (Auto) 42.1 10.0-50.0 % Monocytes (%) (Auto) 4.8 0.0-12.0 % Eosinophils (%) (Auto) 1.7 0.0-7.0 % Basophils (%) (Auto) 3.1 H 0.0-2.0 % Neutrophils # (Auto) 3.5 1.6-8.6 10 ^3/uL Lymphocytes # (Auto) 3.1 0.4-5.4 10 ^3/uL Monocytes # (Auto) 0.4 0-1.3 10 ^3/uL Eosinophils # (Auto) 0.1 0-0.8 10 ^3/uL Basophils # (Auto) 0.2 0-0.2 10 ^3/uL Nucleated Red Blood Cells 0.1 % Sodium Level 141 136-145 mmol/L Potassium Level 3.3 L 3.5-5.1 mmol/L Chloride Level 105 98-107 mmol/L Carbon Dioxide Level 29 20-31 mmol/L Anion Gap 7 5-15 Blood Urea Nitrogen 8 L 9-23 mg/dL Creatinine 0.68 L 0.700-1.30 mg/dL Glomerular Filtration Rate Calc 109 >90 mL/min BUN/Creatinine Ratio 11.8 10.0-20.0 Serum Glucose 77 74-106 mg/dL Calcium Level 9.0 8.7-10.4 mg/dL Total Bilirubin 0.4 0.2-1.0 mg/dL Aspartate Amino Transferase (AST) 28 13-40 U/L Alanine Aminotransferase (ALT) 16 7-40 U/L Alkaline Phosphatase 48 46-116 U/L Total Protein 5.6 L 5.7-8.2 g/dL Albumin 3.8 3.2-4.8 g/dL Triglycerides Level 134 < 150 mg/dL Cholesterol Level 237 H < 200 mg/dL LDL Cholesterol 101 H < 100 mg/dL HDL Cholesterol 112 H 40-59 mg/dL Troponin I High Sensitivity 24 </=54 ng/L B-Type Natriuretic Peptide 315.75 0-100 pg/mL Lipase 35 12-53 U/L Problems(with codes): (1) H. pylori infection (2) Dysphagia (3) Weight loss (4) Chest pain with high risk for cardiac etiology (5) Epigastric pain Plan/Recommendation PLAN Plan for tentative left heart catheterization 04/24/[address] Johnson Patient is undergoing cardiac workup and stabilization for history of ischemic heart disease and unstable angina Continue conservative management from a GI point of view at this time Protonix 40 mg p.o. twice a day Carafate 1 g p.o. twice a day Soft and pureed diet as tolerated Once cardiac cleared I will be standing by for an endoscopy Once again thank you for allowing me to participate in the care of this patient Plan discussed with: Other (None) LOREN BARONE MD Apr 23, 2025 21:14
[2025-04-23] MEDS: SUCRALFATE 1 GM/10 ML ORAL SUSP PO SCH (22:00)
[2025-04-23] MEDS: SACUBITRIL-VALSARTAN 24mg/26mg TAB PO SCH (23:32)
[2025-04-23] MEDS: PRAVASTATIN SODIUM 20 MG TAB PO SCH (23:33)
[2025-04-24] VITALS (12 sets, daily range): BP systolic 119–153; BP diastolic 73–88; PULSE 59–90; RESP 15–18; TEMP 97–98; O2SAT 98–100
[2025-04-24] MEDS ORDERED: PANTOPRAZOLE 40 MG TAB PO SCH (06:00)
[2025-04-24 07:37] LABS: Hemoglobin 13.0 g/dL (13.5-17.5)
[2025-04-24 07:39] LABS: Hematocrit 38.6 % (41.0-53.0); Mean Corpuscular Hemoglobin 34.0 pg (28.0-32.0); Mean Corpuscular Volume 101.1 fL (80.0-100.0); Nucleated Red Blood Cells % 0.1 %
--- NOTE | 2025-04-24 07:48 | ECG ---
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
[2025-04-24 07:53] LABS: Alanine Aminotransferase 16 U/L (7-40); Albumin 3.5 g/dL (3.2-4.8); Anion Gap 6 (5-15); Calcium 8.7 mg/dL (8.7-10.4); Carbon Dioxide 28 mmol/L (20-31); Glucose 86 mg/dL (74-106); Magnesium 1.9 mg/dL (1.6-2.6); Potassium 4.2 mmol/L (3.5-5.1); Sodium 143 mmol/L (136-145)
[2025-04-24 07:54] LABS: Alkaline Phosphatase 45 U/L (46-116); BUN/Creatinine Ratio 7.5 (10.0-20.0); Bilirubin, Total 0.3 mg/dL (0.2-1.0); Blood Urea Nitrogen < 5 mg/dL (9-23); Chloride 109 mmol/L (98-107); Total Protein 5.2 g/dL (5.7-8.2)
--- NOTE | 2025-04-24 08:13 | DVHPN2 ---
Progress Note - Dictate Date Seen: Apr 24, 2025 Medical Necessity Reason Pt with a Central, PICC or Fol: No vital signs Vital Sign Date Time Temp Pulse Resp B/P (MAP) Pulse Ox O2 Delivery O2 Flow Rate FiO2 04/24/25 05:00 97.0 60 17 128/73 (91) 100 97.0 04/23/25 20:00 Room Air* 0 21 Total Intake and Output 04/23/25 04/23/25 04/24/25 15:00 23:00 07:00 Intake Total 600 ml 900 ml Balance 600 ml 900 ml medications Current Medications Medications Dose Ordered Sig/Solis Route Start Time Stop Time Status Last Admin Dose Admin Sodium Chloride 1,000 ml @ 60 mls/hr [id number] IV 04/22/25 13:30 04/23/25 00:40 60 MLS/HR Enoxaparin Sodium 40 mg DAILY SC 04/23/25 10:00 04/23/25 10:20 40 MG Acetaminophen 650 mg Q6HP PRN PO 04/22/25 13:30 Aspirin 81 mg DAILY PO 04/23/25 10:00 04/23/25 10:19 81 MG Empaglifozin 10 mg DAILY PO 04/23/25 10:00 04/23/25 10:18 10 MG Spironolactone 25 mg DAILY PO 04/23/25 10:00 04/23/25 10:18 25 MG Amlodipine Besylate 10 mg DAILY PO 04/23/25 10:00 04/23/25 10:19 10 MG Metoprolol Succinate 25 mg DAILY PO 04/23/25 10:00 04/23/25 10:20 25 MG Al Hydrox/Mg Hydrox/Simethicone 30 ml Q8HR PO 04/23/25 14:00 04/23/25 23:33 30 ML Sacubitril/ Valsartan 1 tab BID PO 04/23/25 22:00 04/23/25 23:32 1 TAB Hydralazine HCl 10 mg Q6HP PRN IV 04/23/25 15:45 Pravastatin Sodium 40 mg HS PO 04/23/25 22:00 04/23/25 23:33 40 MG Pantoprazole Sodium 40 mg BID PO 04/23/25 22:00 04/23/25 22:00 40 MG Sucralfate 1 gm BID@0600,2200 PO 04/23/25 22:00 04/23/25 22:00 1 GM laboratory and microbiology Laboratory Tests 04/24/25 06:56 Test 04/24/25 06:56 Range/Units Serum Glucose 86 74-106 mg/dL Assessment/Plan This is a 55-year old male known outside to our practice who initially presented with reported chest pain. Patient himself reports the chest pain had been localized the left chest region and had been provoked with exertion while cleaning which EMS was called for further evaluation. Patient had been administered 325mg Aspirin and SL Nitroglycerin by EMS which reports indicate and transiently improved the reported chest pain. Patient was later transported to this facility for further evaluation and management. At time of consultation there is no EKG available for review however ED provider note mentions rhythm strip had revealed sinus rhythm at 70bpm with no ectopy. Serial HS troponin trend had been found negative (26, 24). LDL was found to be 101 which patient himself reports intolerance to previous Atorvastatin therapy and had subsequently discontinued therapy himself. Initial BNP level had been found elevated at 315.75 which subsequent chest imaging had revealed no evidence for acute cardiopulmonary abnormalities. Of note, patient did undergo previous ischemic workup by NST 03/14/2025 and at that time had revealed evidence for reversible myocardial ischemia which subsequent outpatient based cardiac catheterization had been requested (remains pending at present). Echocardiogram 03/21/2025 (outpatient) had revealed a reduced LVEF of 40-45% which he had been initiated on GDMT. At present, Echocardiogram 04/23/25 has revealed an LVEF of 45%. At present, denies any shortness of breath, palpitations, dizziness, syncope, orthopnea, paroxysmal nocturnal dyspnea or any further cardiac related symptoms. Cardiology services were subsequently involved by primary team request for cardiac aspects of care. Past medical history includes systolic heart failure, hypertension, hyperlipidemia, GERD. Patient is an active tobacco smoker. Nuclear Stress Test: (DV 03/14/2025) nuclear Findings: positive for ischemia. lvef 55%. inferior wall mild rerversible defect. gi artifact noted Echocardiogram: (Outpatient 03/21/2025) LVEF of 40-45%. Borderline concentric left ventricular hypertrophy. Mild hypokinesis of left ventricle. Right atrium mildly enlarged. Interatrial septal aneurysm. Mild mitral regurgitation. Minimal mitral valve prolapse. Mild tricuspid regurgitation. Right ventricular systolic pressure of 34mmHg. There is some calcification of the pericardium. Echocardiogram: ([facility] 04/23/2025) lvef 45%. septum is hypokinetic. normal rv function. atrium enlarged Unstable angina Systolic heart failure (compensated), LVEF of 45% 04/23/2025 History of abnormal nuclear stress test Hyperlipidemia, LDL of 101 Tobacco dependence Hypertension CARDIAC SUGGESTIONS FOR MANAGEMENT: Recognizing clinical presentation, comorbidities, risk-factors, and recent positive NST, patient benefits from undergoing ischemic workup by cardiac catheterization to assess for any evidence of obstructive coronary artery disease potential warranting revascularization. Benefits, risks, and alternatives were discussed at length with the patient which he is agreeable to the plan of care. To proceed with optimized medical therapy and risk factor modification during the interim. Plan for tentative left heart catheterization 04/24/2025 Patient to be consented and NPO status at midnight 04/24/2025 for intended procedure To proceed with optimized medical therapy and risk factor modification during the interim Proceed with GDMT for systolic heart failure as concurrent conditions permit Proceed with close observation for overt signs of fluid overload Proceed with strict intakes, outputs, and daily weights Metoprolol Succinate 25mg once daily Trial Pravastatin 40mg once daily Entresto 24-25mg twice daily Amlodipine 10mg once daily Aldactone 25mg once daily Jardiance 10mg once daily Aspirin 81mg once daily Counseled on importance of tobacco cessation Proceed with close rate and rhythm surveillance Proceed with close hemodynamic surveillance Proceed with optimized blood pressure control Transfuse to sustain HGB level above 7.0 Sustain Magnesium level greater than 2.0 Sustain Potassium level greater than 4.0 Follow up renal function and electrolytes Management of co-morbidities as per primary team On Lovenox for DVT prophylaxis On PPI for GI prophylaxis Management in telemetry Will proceed to follow from a cardiac perspective Further recommendations per clinical progression All available diagnostic labs, EKG's, and images were personally reviewed Plan of care discussed with and agreed upon by patient / primary RN Prognosis: Guarded Thank you for allowing me to participate in the care of this patient. Further recommendations based on patients clinical course and progression, primary attending, and other consultants. Will continue to follow with primary attending. If you have any questions or concerns, please do not hesitate to contact me. A total of 55 minutes was spent reviewing the patient record, examining the patient, making a diagnostic and therapeutic plan, discussing this plan with medical personnel, following up on diagnostic studies and following the patient for clinical stability excluding any and all procedures. At least 50% of this time was spent in direct, [id number] contact. Plan discussed with: Patient, Other (nurse) GRZEGORZ OLIVEROS MD Apr 24, 2025 08:13
[2025-04-24 10:11] LABS: Hepatitis B Surface Antigen Negative (Negative)
[2025-04-24 10:33] LABS: Hepatitis C Antibody Negative (Negative)
[2025-04-24 11:01] LABS: INR 1.08 (0.9-1.15); Partial Thromboplastin Time 24.4 SEC (24.5-34.5); Prothrombin Time 11.4 sec (9.3-11.8)
--- NOTE | 2025-04-24 17:58 | DVHOP2 ---
Operative Report Procedures performed: Left heart catheterization and bilateral coronary angiogram Moderate sedation Diagnosis: Nonobstructive coronary artery disease LVEF of 50% with normal EDP Cardiac suggestion for management: Optimized medical therapy Lifestyle and risk factor modification Findings: LVEF: 50% LVEDP: 1 mm Hg There was no transaortic valve pressure gradient Left main: Left main was coming off the left sinus of Valsalva. It was free of disease. LAD: LAD was coming off the left main. It produced normal number of diagonals. There was no angiographic evidence of disease in LAD throughout its course and branches. LCX: LCX was coming off the left main. It provided the 1st large obtuse marginal and a 2nd medium-sized obtuse marginal. LCX throughout its course and branches did not reveal any angiographic evidence of disease. RCA: RCA was coming off the right sinus of Valsalva. It was the dominant vessel and provided RPDA. Proximal RCA was tortuous and had mild disease. Other portions of RCA and branches were free of disease. Presentation: Patient is a 55-year-old gentleman who presented with chest pain. He has had abnormal nuclear stress test previously. Patient was sent for cardiac catheterization. Procedure: After obtaining informed consent, the patient was brought to the cardiac cath lab technologist. He was prepped and draped in sterile fashion. Right radial artery was used for access site. 1 mg of Versed and 50 mcg of fentanyl were used for moderate sedation. Using Seldinger technique, the right radial artery was accessed and a 6 [place] slender sheath was inserted into it. 2.5 mg of verapamil and 100 mcg of nitroglycerin were given as a cocktail into the right radial sheath. 3000 units of heparin was given peripherally. A 5 [place] tiger 4 diagnostic catheter was used to perform left heart catheterization (obtaining pressures and performing left ventriculography) and bilateral coronary angiography. There was no indication for any transcatheter revascularization. Total bleeding was less than 5 mL. There was no dissection/hematoma/perforation. Patient tolerated the procedure with no complication. Fluoroscopy time: 2.7 minutes contrast: 40 mL of GRZEGORZ Jama MD Apr 24, 2025 17:58
--- NOTE | 2025-04-24 18:20 | DVHPN2 ---
Progress Note Date Seen: Apr 24, 2025 Resident Creating Document: JAMSHID ACUNA RESIDENT Has the PT tested + for MRSA If YES, has PT been informed?: No Medical Necessity Reason Pt with a Central, PICC or Fol: No Subjective Review of Systems 55 yo M with HFrEF 40%, PUD w/ hpylori admitted for chest pain. Patient reported epigastric pain, stated he was tested for hpylori treated was not currently taking any acid controller. Never been tested for eradication.Also reported weight loss and dysphagia. GI was consulted for possible EGD Patient however has been evaluated by Cardiology and has evidence of ischemic angina unstable Today's progress The patient had 3 bowel movements today The patient underwent left heart catheterization today and the patient was found to have Nonobstructive coronary artery disease LVEF of 50% with normal EDP Cardiac suggestion for management: Optimized medical therapy Lifestyle and risk factor modification So we are planning to do an inpatient EGD post cardiac clearance for his dysphagia weight loss and prior H pylori infection. Objective vital signs Vital Sign Date Time Temp Pulse Resp B/P (MAP) Pulse Ox O2 Delivery O2 Flow Rate FiO2 04/24/25 13:00 97.7 60 17 146/86 (106) 99 97.7 04/24/25 08:10 Room Air* 0 21 Total Intake and Output 04/23/25 04/23/25 04/24/25 15:00 23:00 07:00 Intake Total 600 ml 900 ml Balance 600 ml 900 ml medications Current Medications Medications Dose Ordered Sig/Solis Route Start Time Stop Time Status Last Admin Dose Admin Sodium Chloride 1,000 ml @ 60 mls/hr [id number] IV 04/22/25 13:30 04/24/25 11:46 60 MLS/HR Enoxaparin Sodium 40 mg DAILY SC 04/23/25 10:00 04/24/25 10:19 40 MG Acetaminophen 650 mg Q6HP PRN PO 04/22/25 13:30 Aspirin 81 mg DAILY PO 04/23/25 10:00 04/24/25 10:18 81 MG Empaglifozin 10 mg DAILY PO 04/23/25 10:00 04/23/25 10:18 10 MG Spironolactone 25 mg DAILY PO 04/23/25 10:00 04/24/25 10:18 25 MG Amlodipine Besylate 10 mg DAILY PO 04/23/25 10:00 04/24/25 10:18 10 MG Metoprolol Succinate 25 mg DAILY PO 04/23/25 10:00 04/23/25 10:20 25 MG Al Hydrox/Mg Hydrox/Simethicone 30 ml Q8HR PO 04/23/25 14:00 04/23/25 23:33 30 ML Sacubitril/ Valsartan 1 tab BID PO 04/23/25 22:00 04/24/25 10:18 1 TAB Hydralazine HCl 10 mg Q6HP PRN IV 04/23/25 15:45 Pravastatin Sodium 40 mg HS PO 04/23/25 22:00 04/23/25 23:33 40 MG Pantoprazole Sodium 40 mg BID PO 04/23/25 22:00 04/24/25 10:18 40 MG Sucralfate 1 gm BID@0600,2200 PO 04/23/25 22:00 04/23/25 22:00 1 GM Examination Physical exam AOx4 GIA MMM clear breath sounds s1 s2rrr abdomen soft, epigastric tenderness no LE edema laboratory and microbiology Laboratory Tests 04/24/25 06:56 Test 04/24/25 06:56 Range/Units Serum Glucose 86 74-106 mg/dL Problem List/Assessment/Plan Problem List/Assessment/Plan ASSESSMENT (1) H. pylori infection (2) Dysphagia (3) Weight loss (4) Chest pain with high risk for cardiac etiology (5) Epigastric pain Plan/Recommendation PLAN The patient underwent left heart catheterization today and the patient was found to have Nonobstructive coronary artery disease LVEF of 50% with normal EDP Cardiac suggestion for management: Optimized medical therapy Lifestyle and risk factor modification Continue conservative management from a GI point of view at this time Protonix 40 mg p.o. twice a day Carafate 1 g p.o. twice a day Soft and pureed diet as tolerated Ordered a CT abdomen pelvis and chest with oral contrast to further evaluate his intra-abdominal pathology. We will proceed with an EGD post cardiac clearance in inpatient setting We will continue to follow up with the patient. Plan discussed with: Other (RN) JAMSHID ACUNA RESIDENT Apr 24, 2025 18:20
[2025-04-24] MEDS: HEPARIN SODIUM (PORCINE) 5000 UNITS/ML 1ML VIAL ONE (18:50)
[2025-04-24] MEDS: IODIXANOL 320MG/ML 100ML BTL IV ONE ×2 (18:50)
[2025-04-24] MEDS: SODIUM CHL 0.9% 0 ML ONE (18:50)
[2025-04-24] MEDS: ANGIOMAX 250 MG VIAL IV ONE (18:50)
[2025-04-24] MEDS: fentaNYL CITRATE 100 MCG/2 ML VL ONE (18:50)
[2025-04-24] MEDS: LIDOCAINE 2%HCL (LOCAL ANESTH.) INJ 20ML MDV ONE (18:50)
[2025-04-24] MEDS: VERAPAMIL 2.5MG/ML INJ 2ML VIAL IV ONE (18:50)
[2025-04-24] MEDS: MIDAZOLAM HCL 2MG/2ML 2ml VIAL (1mg/ml) ONE ×3 (18:50)
--- NOTE | 2025-04-24 21:14 | DVHPN2 ---
Progress Note - Dictate Date Seen: Apr 24, 2025 Has the PT tested + for MRSA If YES, has PT been informed?: No Medical Necessity Reason Pt with a Central, PICC or Fol: No vital signs Vital Sign Date Time Temp Pulse Resp B/P (MAP) Pulse Ox O2 Delivery O2 Flow Rate FiO2 04/24/25 18:00 71 16 122/83 (96) 99 04/24/25 17:01 98.0 98.0 04/24/25 08:10 Room Air* 0 21 Total Intake and Output 04/23/25 04/23/25 04/24/25 15:00 23:00 07:00 Intake Total 600 ml 900 ml Balance 600 ml 900 ml medications Current Medications Medications Dose Ordered Sig/Solis Route Start Time Stop Time Status Last Admin Dose Admin Sodium Chloride 1,000 ml @ 60 mls/hr [id number] IV 04/22/25 13:30 04/24/25 11:46 60 MLS/HR Enoxaparin Sodium 40 mg DAILY SC 04/23/25 10:00 04/24/25 10:19 40 MG Acetaminophen 650 mg Q6HP PRN PO 04/22/25 13:30 Aspirin 81 mg DAILY PO 04/23/25 10:00 04/24/25 10:18 81 MG Empaglifozin 10 mg DAILY PO 04/23/25 10:00 04/23/25 10:18 10 MG Spironolactone 25 mg DAILY PO 04/23/25 10:00 04/24/25 10:18 25 MG Amlodipine Besylate 10 mg DAILY PO 04/23/25 10:00 04/24/25 10:18 10 MG Metoprolol Succinate 25 mg DAILY PO 04/23/25 10:00 04/23/25 10:20 25 MG Al Hydrox/Mg Hydrox/Simethicone 30 ml Q8HR PO 04/23/25 14:00 04/23/25 23:33 30 ML Sacubitril/ Valsartan 1 tab BID PO 04/23/25 22:00 04/24/25 10:18 1 TAB Hydralazine HCl 10 mg Q6HP PRN IV 04/23/25 15:45 Pravastatin Sodium 40 mg HS PO 04/23/25 22:00 04/23/25 23:33 40 MG Pantoprazole Sodium 40 mg BID PO 04/23/25 22:00 04/24/25 10:18 40 MG Sucralfate 1 gm BID@0600,2200 PO 04/23/25 22:00 04/23/25 22:00 1 GM laboratory and microbiology Laboratory Tests 04/24/25 06:56 Test 04/24/25 06:56 Range/Units Serum Glucose 86 74-106 mg/dL Problem List Subjective History of Present Illness inocencia Toney is a patient with a history of hypertension presenting with chest pain. He was scheduled for a cardiac catheterization today to evaluate this complaint. The patient is currently in the catheterization lab undergoing the procedure. The exact nature, onset, duration, and severity of the chest pain are not specified in the provided information. Additionally, the patient has been experiencing epigastric pain, which may be related to the chest pain or could be a separate issue. Due to this epigastric pain, there is consideration for a possible endoscopy, though this plan is still under discussion pending the results of the cardiac catheterization. Medical History - Hypertension Review of Systems Cardiovascular: Positive for chest pain. Gastrointestinal: Positive for epigastric pain. Objective Laboratory, Imaging, and Diagnostic Test Results - Cardiac catheterization: In progress (as of ThuApr 24 2025) Assessment & Plan EUGENIA Avitia is a patient with hypertension presenting with chest pain and epigastric pain currently undergoing cardiac catheterization. Chest pain Assessment: Patient presented with chest pain, warranting cardiac catheterization. The patient is currently in the catheterization lab undergoing the procedure. The exact nature and severity of the chest pain are not specified. Plan: - Await results of cardiac catheterization - If catheterization results are unremarkable, consider discharge - Discuss potential need for endoscopy with Dr. Campbell Epigastric pain Assessment: Patient reported epigastric pain, which may be related to the chest pain or a separate gastrointestinal issue. The severity and duration of the epigastric pain are not specified. Plan: - Discuss potential need for endoscopy with Dr. Cmapbell Hypertension Assessment: Patient has a history of hypertension. Current blood pressure readings and medication regimen are not specified. Plan: - Continue current hypertension management Plan discussed with: Patient HUGH HAMMER MD Apr 24, 2025 21:14
[2025-04-25] VITALS (9 sets, daily range): BP systolic 104–132; BP diastolic 58–93; PULSE 61–85; RESP 14–18; TEMP 97.6–98.3; O2SAT 94–100
--- NOTE | 2025-04-25 07:54 | DVHPN2 ---
Progress Note - Dictate Date Seen: Apr 25, 2025 Has the PT tested + for MRSA If YES, has PT been informed?: No Medical Necessity Reason Pt with a Central, PICC or Fol: No vital signs Vital Sign Date Time Temp Pulse Resp B/P (MAP) Pulse Ox O2 Delivery O2 Flow Rate FiO2 04/25/25 05:00 98.1 61 14 118/93 (101) 100 98.1 04/24/25 20:00 Room Air* 0 21 Total Intake and Output 04/24/25 04/24/25 04/25/25 15:00 23:00 07:00 Intake Total 500 ml Balance 500 ml medications Current Medications Medications Dose Ordered Sig/Solis Route Start Time Stop Time Status Last Admin Dose Admin Sodium Chloride 1,000 ml @ 60 mls/hr [id number] IV 04/22/25 13:30 04/24/25 11:46 60 MLS/HR Enoxaparin Sodium 40 mg DAILY SC 04/23/25 10:00 04/24/25 10:19 40 MG Acetaminophen 650 mg Q6HP PRN PO 04/22/25 13:30 Aspirin 81 mg DAILY PO 04/23/25 10:00 04/24/25 10:18 81 MG Empaglifozin 10 mg DAILY PO 04/23/25 10:00 04/23/25 10:18 10 MG Spironolactone 25 mg DAILY PO 04/23/25 10:00 04/24/25 10:18 25 MG Amlodipine Besylate 10 mg DAILY PO 04/23/25 10:00 04/24/25 10:18 10 MG Metoprolol Succinate 25 mg DAILY PO 04/23/25 10:00 04/23/25 10:20 25 MG Al Hydrox/Mg Hydrox/Simethicone 30 ml Q8HR PO 04/23/25 14:00 04/25/25 06:21 30 ML Sacubitril/ Valsartan 1 tab BID PO 04/23/25 22:00 04/24/25 21:17 1 TAB Hydralazine HCl 10 mg Q6HP PRN IV 04/23/25 15:45 Pravastatin Sodium 40 mg HS PO 04/23/25 22:00 04/24/25 21:17 40 MG Pantoprazole Sodium 40 mg BID PO 04/23/25 22:00 8/11/25 21:18 40 MG Sucralfate 1 gm BID@0600,2200 PO 04/23/25 22:00 04/25/25 06:21 1 GM laboratory and microbiology Laboratory Tests 04/24/25 06:56 Test 04/24/25 06:56 Range/Units Serum Glucose 86 74-106 mg/dL Assessment/Plan This is a 55-year old male known outside to our practice who initially presented with reported chest pain. Patient himself reports the chest pain had been localized the left chest region and had been provoked with exertion while cleaning which EMS was called for further evaluation. Patient had been administered 325mg Aspirin and SL Nitroglycerin by EMS which reports indicate and transiently improved the reported chest pain. Patient was later transported to this facility for further evaluation and management. At time of consultation there is no EKG available for review however ED provider note mentions rhythm strip had revealed sinus rhythm at 70bpm with no ectopy. Serial HS troponin trend had been found negative (26, 24). LDL was found to be 101 which patient himself reports intolerance to previous Atorvastatin therapy and had subsequently discontinued therapy himself. Initial BNP level had been found elevated at 315.75 which subsequent chest imaging had revealed no evidence for acute cardiopulmonary abnormalities. Of note, patient did undergo previous ischemic workup by NST 03/14/2025 and at that time had revealed evidence for reversible myocardial ischemia which subsequent outpatient based cardiac catheterization had been requested (remains pending at present). Echocardiogram 03/21/2025 (outpatient) had revealed a reduced LVEF of 40-45% which he had been initiated on GDMT. At present, Echocardiogram 04/23/25 has revealed an LVEF of 45%. At present, denies any shortness of breath, palpitations, dizziness, syncope, orthopnea, paroxysmal nocturnal dyspnea or any further cardiac related symptoms. Cardiology services were subsequently involved by primary team request for cardiac aspects of care. Past medical history includes systolic heart failure, hypertension, hyperlipidemia, GERD. Patient is an active tobacco smoker. Nuclear Stress Test: (DV 03/14/2025) nuclear Findings: positive for ischemia. lvef 55%. inferior wall mild rerversible defect. gi artifact noted Echocardiogram: (Outpatient 03/21/2025) LVEF of 40-45%. Borderline concentric left ventricular hypertrophy. Mild hypokinesis of left ventricle. Right atrium mildly enlarged. Interatrial septal aneurysm. Mild mitral regurgitation. Minimal mitral valve prolapse. Mild tricuspid regurgitation. Right ventricular systolic pressure of 34mmHg. There is some calcification of the pericardium. Echocardiogram: ([facility] 04/23/2025) lvef 45%. septum is hypokinetic. normal rv function. atrium enlarged LHC revealed: Nonobstructive coronary artery disease; LVEF of 50% with normal EDP; Cardiac suggestion for management: Optimized medical therapy; Lifestyle and risk factor modification Unstable angina Systolic heart failure (compensated), LVEF of 45% 04/23/2025 History of abnormal nuclear stress test Hyperlipidemia, LDL of 101 Tobacco dependence Hypertension CARDIAC SUGGESTIONS FOR MANAGEMENT: Recognizing clinical presentation, comorbidities, risk-factors, and recent positive NST, patient benefits from undergoing ischemic workup by cardiac catheterization to assess for any evidence of obstructive coronary artery disease potential warranting revascularization. Benefits, risks, and alternatives were discussed at length with the patient which he is agreeable to the plan of care. To proceed with optimized medical therapy and risk factor modification during the interim. s/p non-revealing LHC. Cardiac hinojosa, stable Patient to be consented and NPO status at midnight 04/24/2025 for intended procedure To proceed with optimized medical therapy and risk factor modification during the interim Proceed with GDMT for systolic heart failure as concurrent conditions permit Proceed with close observation for overt signs of fluid overload Proceed with strict intakes, outputs, and daily weights Metoprolol Succinate 25mg once daily Trial Pravastatin 40mg once daily Entresto 24-25mg twice daily Amlodipine 10mg once daily Aldactone 25mg once daily Jardiance 10mg once daily Aspirin 81mg once daily Counseled on importance of tobacco cessation Proceed with close rate and rhythm surveillance Proceed with close hemodynamic surveillance Proceed with optimized blood pressure control Transfuse to sustain HGB level above 7.0 Sustain Magnesium level greater than 2.0 Sustain Potassium level greater than 4.0 Follow up renal function and electrolytes Management of co-morbidities as per primary team On Lovenox for DVT prophylaxis On PPI for GI prophylaxis Cardiac hinojosa is stable Cardiac hinojosa, patient is low risk patient for low risk endoscopy procedure. Cardiac hinojosa, you can proceed with EGD. Avoid Hypotension. Management in telemetry Will proceed to follow from a cardiac perspective Further recommendations per clinical progression All available diagnostic labs, EKG's, and images were personally reviewed Plan of care discussed with and agreed upon by patient / primary RN Prognosis: Guarded Thank you for allowing me to participate in the care of this patient. Further recommendations based on patients clinical course and progression, primary attending, and other consultants. Will continue to follow with primary attending. If you have any questions or concerns, please do not hesitate to contact me. A total of 55 minutes was spent reviewing the patient record, examining the patient, making a diagnostic and therapeutic plan, discussing this plan with medical personnel, following up on diagnostic studies and following the patient for clinical stability excluding any and all procedures. At least 50% of this time was spent in direct, [id number] contact. Plan discussed with: Patient, Other (nurse) GRZEGORZ OLIVEROS MD Apr 25, 2025 07:54
[2025-04-25 11:16] LABS: Hemoglobin 13.2 g/dL (13.5-17.5); Nucleated Red Blood Cells % 0.1 %
[2025-04-25 11:17] LABS: Hematocrit 39.8 % (41.0-53.0); Mean Corpuscular Hemoglobin 34.0 pg (28.0-32.0); Mean Corpuscular Volume 102.3 fL (80.0-100.0)
[2025-04-25 11:31] LABS: Alanine Aminotransferase 22 U/L (7-40); Albumin 4.0 g/dL (3.2-4.8); Alkaline Phosphatase 50 U/L (46-116); Anion Gap 6 (5-15); Carbon Dioxide 28 mmol/L (20-31); Chloride 106 mmol/L (98-107); Glucose 88 mg/dL (74-106); Magnesium 2.0 mg/dL (1.6-2.6); Sodium 140 mmol/L (136-145); Total Protein 5.9 g/dL (5.7-8.2)
[2025-04-25 11:33] LABS: Bilirubin, Total 0.3 mg/dL (0.2-1.0)
[2025-04-25 11:37] LABS: BUN/Creatinine Ratio 7.6 (10.0-20.0); Blood Urea Nitrogen < 5 mg/dL (9-23); Calcium 8.7 mg/dL (8.7-10.4); Potassium 3.3 mmol/L (3.5-5.1)
[2025-04-25] MEDS: POTASSIUM EFFERVESENT TAB 25 MEQ PO ONE (14:49)
[2025-04-25] MEDS ORDERED: SUCR1TAB31 OR (16:17)
[2025-04-25] MEDS ORDERED: AML5T PO (16:17)
[2025-04-25] MEDS ORDERED: SACU1TAB PO (16:17)
[2025-04-25] MEDS ORDERED: PRAV20TA3 PO (16:17)
[2025-04-25] MEDS ORDERED: EMPA1TAB PO (16:17)
[2025-04-25] MEDS ORDERED: SPIR25TA PO (16:17)
[2025-04-25] MEDS ORDERED: METO-6 PO (16:17)
[2025-04-25] MEDS ORDERED: ASPI-325 PO (16:17)
[2025-04-25] MEDS ORDERED: PANT40T PO (16:17)
--- NOTE | 2025-04-25 16:23 | DVHDS2 ---
Discharge Summary Date of Admission Apr 22, 2025 at 13:33 Date of Discharge: Apr 25, 2025 Labs/Diagnostic Data: Laboratory Results Test 04/25/25 10:59 04/24/25 10:27 04/23/25 05:28 04/22/25 04:44 White Blood Count 6.6 10^3/uL (4.4-10.8) Red Blood Count 3.89 10^6/uL (4.5-5.90) Hemoglobin 13.2 g/dL (13.5-17.5) Hematocrit 39.8 % (41.0-53.0) Mean Corpuscular Volume 102.3 fL (80.0-100.0) Mean Corpuscular Hemoglobin 34.0 pg (28.0-32.0) Mean Corpuscular Hemoglobin Concent 33.2 g/dL (32.0-36.0) Red Cell Distribution Width 16.1 % (11.8-14.3) Platelet Count 256 10^3/uL (140-450) Mean Platelet Volume 6.7 fL (6.9-10.8) Neutrophils (%) (Auto) 58.0 % (37.0-80.0) Lymphocytes (%) (Auto) 33.1 % (10.0-50.0) Monocytes (%) (Auto) 4.8 % (0.0-12.0) Eosinophils (%) (Auto) 1.2 % (0.0-7.0) Basophils (%) (Auto) 2.9 % (0.0-2.0) Neutrophils # (Auto) 3.8 10 ^3/uL (1.6-8.6) Lymphocytes # (Auto) 2.2 10 ^3/uL (0.4-5.4) Monocytes # (Auto) 0.3 10 ^3/uL (0-1.3) Eosinophils # (Auto) 0.1 10 ^3/uL (0-0.8) Basophils # (Auto) 0.2 10 ^3/uL (0-0.2) Nucleated Red Blood Cells 0.1 % Sodium Level 140 mmol/L (136-145) Potassium Level 3.3 mmol/L (3.5-5.1) Chloride Level 106 mmol/L (98-107) Carbon Dioxide Level 28 mmol/L (20-31) Anion Gap 6 (5-15) Blood Urea Nitrogen < 5 mg/dL (9-23) Creatinine 0.66 mg/dL (0.700-1.30) Glomerular Filtration Rate Calc 110 mL/min (>90) BUN/Creatinine Ratio 7.6 (10.0-20.0) Serum Glucose 88 mg/dL (74-106) Calcium Level 8.7 mg/dL (8.7-10.4) Phosphorus Level 3.1 mg/dL (2.4-5.1) Magnesium Level 2.0 mg/dL (1.6-2.6) Total Bilirubin 0.3 mg/dL (0.2-1.0) Aspartate Amino Transferase (AST) 24 U/L (13-40) Alanine Aminotransferase (ALT) 22 U/L (7-40) Alkaline Phosphatase 50 U/L (46-116) Total Protein 5.9 g/dL (5.7-8.2) Albumin 4.0 g/dL (3.2-4.8) Prothrombin Time 11.4 sec (9.3-11.8) Prothrombin Time INR 1.08 (0.9-1.15) Activated Partial Thromboplast Time 24.4 SEC (24.5-34.5) Hepatitis B Surface Antigen Negative (Negative) Hepatitis C Antibody Negative (Negative) Triglycerides Level 134 mg/dL (< 150) Cholesterol Level 237 mg/dL (< 200) LDL Cholesterol 101 mg/dL (< 100) HDL Cholesterol 112 mg/dL (40-59) Test 04/22/25 00:44 04/22/25 00:00 Troponin I High Sensitivity 24 ng/L (</=54) B-Type Natriuretic Peptide 315.75 pg/mL (0-100) Lipase 35 U/L (12-53) Other Laboratory Tests 04/25/25 10:59 Final Diagnosis/Problems List Epigastric pain HX of h. Pylori non-obstructive CAD Discharge Disposition: Home Discharge Instruct/Medications Diet: Cardiac 2g Na,low cholest Activity: No Restrictions, As Tolerated Follow Up/Referral: pcp 1 week cardiology 2 weeks Medications: as prescribed Scheduled Amlodipine Besylate (Norvasc Tablet), 10 MG PO DAILY Aspirin (Aspirin Low Dose), 81 MG PO DAILY Empagliflozin (Jardiance), 10 MG PO DAILY Metoprolol Succinate (Toprol Xl), 25 MG PO DAILY Pantoprazole Sodium Sesquihydr (Pantoprazole Sodium), 40 MG PO BID Pravastatin Sodium (Pravachol Tablet), 40 MG PO HS Sacubitril-Valsartan (Entresto 24-26 mg), 1 TAB PO BID Spironolactone (Aldactone), 25 MG PO DAILY Sucralfate (Carafate), 1 GM OR BID Discontinued Medications Amlodipine Besylate (Amlodipine Besylate), 1 TAB PO DAILY, (Reported) Aspirin (Aspirin Low Dose), 1 TAB PO DAILY, (Reported) Atorvastatin Calcium (Atorvastatin Calcium), 1 TAB PO HS, (Reported) Empagliflozin (Jardiance), 1 TAB PO DAILY, (Reported) Hydrochlorothiazide W/Triamter (Triamterene/Hydrochloroth), 1 TAB PO DAILY, (Reported) Metoclopramide Hcl (Metoclopramide Hcl), 1 TAB PO Q6HPRN PRN, (Reported) Metoprolol Succinate (Metoprolol Succinate Er), 1 TAB PO DAILY, (Reported) Omeprazole (Omeprazole Dr), 1 CAP PO DAILY, (Reported) Spironolactone (Spironolactone), 0.5 TAB PO DAILY, (Reported) Discharge Statement: "Patient was advised to return to the ER or call 911 if any headaches, dizziness, shortness of breath, chest pain, abdominal pain, bleeding, fevers, or worsening of medical condition. Patient was counseled about treatment plan, medications, possible side effects, patientverbalized understanding. All questions were answered to the best of my ability. This discharge took greater then 30 minutes in planning, reviewing documentation, counseling the patient, and discussing with other team members." ASSESSMENT ASSESSMENT Assessment Epigastric pain HX of h. Pylori non-obstructive CAD ALEX SU NP Apr 25, 2025 16:23 HUGH HAMMER MD Apr 26, 2025 19:59
--- NOTE | 2025-04-25 18:39 | DVHPN2 ---
Progress Note Date Seen: Apr 25, 2025 Resident Creating Document: JAMSHID ACUNA RESIDENT Has the PT tested + for MRSA If YES, has PT been informed?: No Medical Necessity Reason Pt with a Central, PICC or Fol: No Subjective Review of Systems This patient is a 55-year-old male who underwent PCI yesterday and was suggested by Cardiology with the aggressive medical management and lifestyle modification rather than immediate intervention. Today progress- Persistent difficulty swallowing dysphagia Slight nausea and epigastric abdominal pain worsened with food intake. Tolerating oral feeds at present. Two bowel movements today, no hematochezia or melena reported No vomiting, diarrhea or fevers. Cardiovascularly stable, without complaints of chest pain. An abdominal ultrasound performed earlier outpatient revealed gallbladder polyps according to the patient, and and given dysphagia EGD scheduled for tomorrow. Cardiology as provided clearance for the procedure. The patient is NPO after midnight in preparation. Objective vital signs Vital Sign Date Time Temp Pulse Resp B/P (MAP) Pulse Ox O2 Delivery O2 Flow Rate FiO2 04/25/25 17:00 98.1 71 18 107/75 (86) 98 98.1 04/25/25 08:30 Room Air* 0 21 Total Intake and Output 04/24/25 04/24/25 04/25/25 15:00 23:00 07:00 Intake Total 500 ml Balance 500 ml medications Current Medications Medications Dose Ordered Sig/Solis Route Start Time Stop Time Status Last Admin Dose Admin Sodium Chloride 1,000 ml @ 60 mls/hr [id number] IV 04/22/25 13:30 04/25/25 10:33 60 MLS/HR Enoxaparin Sodium 40 mg DAILY SC 04/23/25 10:00 04/25/25 10:25 40 MG Acetaminophen 650 mg Q6HP PRN PO 04/22/25 13:30 Aspirin 81 mg DAILY PO 04/23/25 10:00 04/25/25 10:24 81 MG Empaglifozin 10 mg DAILY PO 04/23/25 10:00 04/25/25 10:25 10 MG Spironolactone 25 mg DAILY PO 04/23/25 10:00 04/25/25 10:23 25 MG Amlodipine Besylate 10 mg DAILY PO 04/23/25 10:00 04/25/25 10:24 10 MG Metoprolol Succinate 25 mg DAILY PO 04/23/25 10:00 04/25/25 10:25 25 MG Al Hydrox/Mg Hydrox/Simethicone 30 ml Q8HR PO 04/23/25 14:00 04/25/25 13:44 30 ML Sacubitril/ Valsartan 1 tab BID PO 04/23/25 22:00 04/25/25 10:25 1 TAB Hydralazine HCl 10 mg Q6HP PRN IV 04/23/25 15:45 Pravastatin Sodium 40 mg HS PO 04/23/25 22:00 04/24/25 21:17 40 MG Pantoprazole Sodium 40 mg BID PO 04/23/25 22:00 04/25/25 10:23 40 MG Sucralfate 1 gm BID@0600,2200 PO 04/23/25 22:00 04/25/25 06:21 1 GM Examination General-alert, no in acute distress Abdomen-soft, mild epigastric tenderness, no rebound, guarding, no organomegaly. laboratory and microbiology Laboratory Tests 04/25/25 10:59 Test 04/25/25 10:59 Range/Units Serum Glucose 88 74-106 mg/dL Problem List/Assessment/Plan Problem List/Assessment/Plan ASSESSMENT (1) H. pylori infection (2) Dysphagia (3) Weight loss (4) Chest pain with high risk for cardiac etiology (5) Epigastric pain Plan/Recommendation PLAN EGD scheduled for tomorrow. NPO after midnight. Abdominal ultrasound for evaluation of the gallbladder polyp. Nonobstructive coronary artery disease LVEF of 50% with normal EDP Cardiac suggestion for management: Optimized medical therapy Lifestyle and risk factor modification Continue conservative management from a GI point of view at this time Protonix 40 mg p.o. twice a day Carafate 1 g p.o. twice a day Soft and pureed diet as tolerated Ordered a CT abdomen pelvis and chest with oral contrast to further evaluate his intra-abdominal pathology. We will proceed with an EGD post cardiac clearance in inpatient setting We will continue to follow up with the patient. Plan discussed with: Patient JAMSHID ACUNA RESIDENT Apr 25, 2025 18:39
--- NOTE | 2025-04-25 20:29 | DVH ---
ABDOMINAL ULTRASOUND CLINICAL HISTORY: CHEST PAIN TECHNIQUE: Multiple grayscale and color Doppler ultrasound images were obtained of the abdomen. WID: COMPARISON: None FINDINGS: Liver and Biliary System: Increased echogenicity, normal size measuring 14.8 cm. No focal hepatic o bservations. No intrahepatic bile duct dilatation. The common duct measures 0.6 cm at the diane hep atis. The gallbladder is normal caliber without wall thickening. There is cholelithiasis.. Pancreas: Visualized portions are unremarkable. Spleen: is within normal limits. Kidneys: The right kidney is 10.3 cm and the left kidney is 0.8 cm. No hydronephrosis, increased e chogenicity, shadowing stone, or focal lesion. Aorta: Visualized portions are normal in caliber. IVC: Visualized portions are normal in caliber. Peritoneal Space: No abdominal ascites. IMPRESSION: Hepatic steatosis. Cholelithiasis.
--- NOTE | 2025-04-25 21:37 | DVHPN2 ---
Progress Note - Dictate Date Seen: Apr 25, 2025 Has the PT tested + for MRSA If YES, has PT been informed?: No Medical Necessity Reason Pt with a Central, PICC or Fol: No vital signs Vital Sign Date Time Temp Pulse Resp B/P (MAP) Pulse Ox O2 Delivery O2 Flow Rate FiO2 04/25/25 17:00 98.1 71 18 107/75 (86) 98 98.1 04/25/25 08:30 Room Air* 0 21 Total Intake and Output 04/24/25 04/24/25 04/25/25 15:00 23:00 07:00 Intake Total 500 ml Balance 500 ml medications Current Medications Medications Dose Ordered Sig/Solis Route Start Time Stop Time Status Last Admin Dose Admin Sodium Chloride 1,000 ml @ 60 mls/hr [id number] IV 04/22/25 13:30 04/25/25 10:33 60 MLS/HR Enoxaparin Sodium 40 mg DAILY SC 04/23/25 10:00 04/25/25 10:25 40 MG Acetaminophen 650 mg Q6HP PRN PO 04/22/25 13:30 Aspirin 81 mg DAILY PO 04/23/25 10:00 04/25/25 10:24 81 MG Empaglifozin 10 mg DAILY PO 04/23/25 10:00 04/25/25 10:25 10 MG Spironolactone 25 mg DAILY PO 04/23/25 10:00 04/25/25 10:23 25 MG Amlodipine Besylate 10 mg DAILY PO 04/23/25 10:00 04/25/25 10:24 10 MG Metoprolol Succinate 25 mg DAILY PO 04/23/25 10:00 04/25/25 10:25 25 MG Al Hydrox/Mg Hydrox/Simethicone 30 ml Q8HR PO 04/23/25 14:00 04/25/25 13:44 30 ML Sacubitril/ Valsartan 1 tab BID PO 04/23/25 22:00 04/25/25 10:25 1 TAB Hydralazine HCl 10 mg Q6HP PRN IV 04/23/25 15:45 Pravastatin Sodium 40 mg HS PO 04/23/25 22:00 04/24/25 21:17 40 MG Pantoprazole Sodium 40 mg BID PO 04/23/25 22:00 8/12/25 10:23 40 MG Sucralfate 1 gm BID@0600,2200 PO 04/23/25 22:00 04/25/25 06:21 1 GM laboratory and microbiology Laboratory Tests 04/25/25 10:59 Test 04/25/25 10:59 Range/Units Serum Glucose 88 74-106 mg/dL Assessment/Plan Subjective Patient underwent cardiac catheterization yesterday to evaluate chest pain. Patient also complained of chest pain. Planning for CT abdomen and EGD. DC planning home tomorrow. Medical History - Hypertension Review of Systems Cardiovascular: Positive for chest pain. Gastrointestinal: Positive for epigastric pain. Objective Laboratory, Imaging, and Diagnostic Test Results - Cardiac catheterization: In progress (as of ThuApr 24 2025) Assessment & Plan Chest pain Assessment: Patient presented with chest pain, warranting cardiac catheterization. The patient is currently in the catheterization lab undergoing the procedure. The exact nature and severity of the chest pain are not specified. Plan: - Await results of cardiac catheterization - If catheterization results are unremarkable, consider discharge - Discuss potential need for endoscopy with Dr. Campbell Epigastric pain Assessment: Patient reported epigastric pain, which may be related to the chest pain or a separate gastrointestinal issue. The severity and duration of the epigastric pain are not specified. Plan: - Discuss potential need for endoscopy with Dr. Campbell Hypertension Assessment: Patient has a history of hypertension. Current blood pressure readings and medication regimen are not specified. Plan: - Continue current hypertension management Plan discussed with: Patient, Other HUGH HAMMER MD Apr 25, 2025 21:37
--- NOTE | 2025-04-25 22:04 | DVH ---
Exam: CT CT AB PEL WITH ORAL CON ONLY History: Evaluate for/dysphagia/weight loss/ SBO Comparison Study: None TECHNIQUE: Multidetector CT of the abdomen was performed from lung bases to pubic symphysis. Imaging was performed without IV contrast. Axial, coronal and sagittal multiplanar reformats were obtained fr om the axial data set by the technologist. Radiation Dose Information: CT Dose: CTDI volume is 5.07 mGy. Dose-length product is 244.05 mGy*cm FINDINGS: Evaluation of solid organs is limited due to lack of intravenous contrast use. Findings: Lung Bases: No acute or significant lung base finding. Normal heart size. No pleural or pericardial effusion. Liver: The liver is normal in size. No focal lesions. Gallbladder and Biliary Tree: Unremarkable Spleen: Unremarkable Pancreas: The pancreas is grossly normal in appearance. Adrenal Glands: Unremarkable Kidneys: Kidneys are grossly normal without calculi or hydronephrosis. Bladder: Grossly unremarkable for degree of distention. Bowel: The stomach is grossly normal in appearance. Small bowel and colon are normal in caliber and d istribution. No bowel obstruction. The appendix is not visualized; however, no secondary findings of acute appendicitis identified. Ascites: Absent Lymphadenopathy: No mesenteric, retroperitoneal or periportal lymphadenopathy. Abdominal Wall and Mesentery: Unremarkable. Vasculature: The visualized abdominal aorta is normal in size and caliber. Evaluation of abdominal a nd pelvic vessels is limited due to lack of intravenous contrast. Pelvic Organs: Unremarkable Musculoskeletal: No aggressive focal bony lesions, acute fractures or dislocation. Soft tissues: Unremarkable IMPRESSION: 1. Oral contrast is noted throughout the small bowel which not dilated. Oral contrast is noted from t he cecum to the rectum. 2. Radiation optimization: All CT scans at this facility use at least one of these dose optimization techniques: automated exposure control mA and/or kV adjustment per patient size (includes targeted e xams where dose is matched to clinical indication) or iterative reconstruction. HS:Y
[2025-04-26 01:00] VITALS: BP 114/60; PULSE 81; RESP 20; TEMP 98.1; O2SAT 99
[2025-04-26 05:00] VITALS: BP 114/80; PULSE 80; RESP 19; TEMP 98.3; O2SAT 96
--- NOTE | 2025-04-26 06:41 | DVHPN2 ---
Progress Note - Dictate Date Seen: Apr 26, 2025 Has the PT tested + for MRSA If YES, has PT been informed?: No Medical Necessity Reason Pt with a Central, PICC or Fol: No vital signs Vital Sign Date Time Temp Pulse Resp B/P (MAP) Pulse Ox O2 Delivery O2 Flow Rate FiO2 04/26/25 05:00 98.3 80 19 114/80 (91) 96 98.3 04/25/25 20:00 Room Air* 0 21 Total Intake and Output 04/25/25 04/25/25 04/26/25 15:00 23:00 07:00 Intake Total 1040 ml 0 ml Output Total 900 ml 1000 ml Balance 140 ml -1000 ml medications Current Medications Medications Dose Ordered Sig/Solis Route Start Time Stop Time Status Last Admin Dose Admin Sodium Chloride 1,000 ml @ 60 mls/hr [id number] IV 04/22/25 13:30 04/26/25 04:21 60 MLS/HR Enoxaparin Sodium 40 mg DAILY SC 04/23/25 10:00 04/25/25 10:25 40 MG Acetaminophen 650 mg Q6HP PRN PO 04/22/25 13:30 Aspirin 81 mg DAILY PO 04/23/25 10:00 04/25/25 10:24 81 MG Empaglifozin 10 mg DAILY PO 04/23/25 10:00 04/25/25 10:25 10 MG Spironolactone 25 mg DAILY PO 04/23/25 10:00 04/25/25 10:23 25 MG Amlodipine Besylate 10 mg DAILY PO 04/23/25 10:00 04/25/25 10:24 10 MG Metoprolol Succinate 25 mg DAILY PO 04/23/25 10:00 04/25/25 10:25 25 MG Al Hydrox/Mg Hydrox/Simethicone 30 ml Q8HR PO 04/23/25 14:00 04/25/25 22:17 30 ML Sacubitril/ Valsartan 1 tab BID PO 04/23/25 22:00 04/25/25 22:18 1 TAB Hydralazine HCl 10 mg Q6HP PRN IV 04/23/25 15:45 Pravastatin Sodium 40 mg HS PO 04/23/25 22:00 04/25/25 22:18 40 MG Pantoprazole Sodium 40 mg BID PO 04/23/25 22:00 04/25/25 22:18 40 MG Sucralfate 1 gm BID@0600,2200 PO 04/23/25 22:00 04/25/25 22:17 1 GM laboratory and microbiology Laboratory Tests 04/25/25 10:59 Test 04/25/25 10:59 Range/Units Serum Glucose 88 74-106 mg/dL Assessment/Plan This is a 55-year old male known outside to our practice who initially presented with reported chest pain. Patient himself reports the chest pain had been localized the left chest region and had been provoked with exertion while cleaning which EMS was called for further evaluation. Patient had been administered 325mg Aspirin and SL Nitroglycerin by EMS which reports indicate and transiently improved the reported chest pain. Patient was later transported to this facility for further evaluation and management. At time of consultation there is no EKG available for review however ED provider note mentions rhythm strip had revealed sinus rhythm at 70bpm with no ectopy. Serial HS troponin trend had been found negative (26, 24). LDL was found to be 101 which patient himself reports intolerance to previous Atorvastatin therapy and had subsequently discontinued therapy himself. Initial BNP level had been found elevated at 315.75 which subsequent chest imaging had revealed no evidence for acute cardiopulmonary abnormalities. Of note, patient did undergo previous ischemic workup by NST 03/14/2025 and at that time had revealed evidence for reversible myocardial ischemia which subsequent outpatient based cardiac catheterization had been requested (remains pending at present). Echocardiogram 03/21/2025 (outpatient) had revealed a reduced LVEF of 40-45% which he had been initiated on GDMT. At present, Echocardiogram 04/23/25 has revealed an LVEF of 45%. At present, denies any shortness of breath, palpitations, dizziness, syncope, orthopnea, paroxysmal nocturnal dyspnea or any further cardiac related symptoms. Cardiology services were subsequently involved by primary team request for cardiac aspects of care. Past medical history includes systolic heart failure, hypertension, hyperlipidemia, GERD. Patient is an active tobacco smoker. Nuclear Stress Test: ([facility] 03/14/2025) nuclear Findings: positive for ischemia. lvef 55%. inferior wall mild rerversible defect. gi artifact noted Echocardiogram: (Outpatient 03/21/2025) LVEF of 40-45%. Borderline concentric left ventricular hypertrophy. Mild hypokinesis of left ventricle. Right atrium mildly enlarged. Interatrial septal aneurysm. Mild mitral regurgitation. Minimal mitral valve prolapse. Mild tricuspid regurgitation. Right ventricular systolic pressure of 34mmHg. There is some calcification of the pericardium. Echocardiogram: ([facility] 04/23/2025) lvef 45%. septum is hypokinetic. normal rv function. atrium enlarged LHC revealed: Nonobstructive coronary artery disease; LVEF of 50% with normal EDP; Cardiac suggestion for management: Optimized medical therapy; Lifestyle and risk factor modification Unstable angina Systolic heart failure (compensated), LVEF of 45% 04/23/2025 History of abnormal nuclear stress test Hyperlipidemia, LDL of 101 Tobacco dependence Hypertension Fatty Liver Cholelithiasis CARDIAC SUGGESTIONS FOR MANAGEMENT: Recognizing clinical presentation, comorbidities, risk-factors, and recent positive NST, patient benefits from undergoing ischemic workup by cardiac catheterization to assess for any evidence of obstructive coronary artery disease potential warranting revascularization. Benefits, risks, and alternatives were discussed at length with the patient which he is agreeable to the plan of care. To proceed with optimized medical therapy and risk factor modification during the interim. s/p non-revealing LHC. Cardiac hinojosa, stable Patient to be consented and NPO status at midnight 04/24/2025 for intended procedure To proceed with optimized medical therapy and risk factor modification during the interim Proceed with GDMT for systolic heart failure as concurrent conditions permit Proceed with close observation for overt signs of fluid overload Proceed with strict intakes, outputs, and daily weights Metoprolol Succinate 25mg once daily Trial Pravastatin 40mg once daily Entresto 24-25mg twice daily Amlodipine 10mg once daily Aldactone 25mg once daily Jardiance 10mg once daily Aspirin 81mg once daily Counseled on importance of tobacco cessation Proceed with close rate and rhythm surveillance Proceed with close hemodynamic surveillance Proceed with optimized blood pressure control Transfuse to sustain HGB level above 7.0 Sustain Magnesium level greater than 2.0 Sustain Potassium level greater than 4.0 Follow up renal function and electrolytes Management of co-morbidities as per primary team On Lovenox for DVT prophylaxis On PPI for GI prophylaxis Cardiac hinojosa is stable Cardiac hinojosa, patient is low risk patient for low risk endoscopy procedure. Cardiac hinojosa, you can proceed with EGD. Avoid Hypotension. Management in telemetry Will proceed to follow from a cardiac perspective Further recommendations per clinical progression All available diagnostic labs, EKG's, and images were personally reviewed Plan of care discussed with and agreed upon by patient / primary RN Prognosis: Guarded Thank you for allowing me to participate in the care of this patient. Further recommendations based on patients clinical course and progression, primary attending, and other consultants. Will continue to follow with primary attending. If you have any questions or concerns, please do not hesitate to contact me. A total of 55 minutes was spent reviewing the patient record, examining the patient, making a diagnostic and therapeutic plan, discussing this plan with medical personnel, following up on diagnostic studies and following the patient for clinical stability excluding any and all procedures. At least 50% of this time was spent in direct, [id number] contact. Plan discussed with: Patient, Other (nurse) GRZEGORZ OLIVEROS MD Apr 26, 2025 06:41
[2025-04-26 08:00] VITALS: PULSE 66
[2025-04-26 09:20] LABS: Hemoglobin 13.0 g/dL (13.5-17.5)
[2025-04-26 09:22] LABS: Hematocrit 39.6 % (41.0-53.0); Mean Corpuscular Hemoglobin 33.7 pg (28.0-32.0); Mean Corpuscular Volume 102.5 fL (80.0-100.0); Nucleated Red Blood Cells % 0.1 %
[2025-04-26 10:02] LABS: Potassium 4.4 mmol/L (3.5-5.1); Sodium 141 mmol/L (136-145)
[2025-04-26 10:03] LABS: Anion Gap 5 (5-15); Calcium 9.1 mg/dL (8.7-10.4); Carbon Dioxide 28 mmol/L (20-31); Chloride 108 mmol/L (98-107)
[2025-04-26 10:08] LABS: Glucose 82 mg/dL (74-106)
[2025-04-26 10:09] LABS: Magnesium 2.4 mg/dL (1.6-2.6)
[2025-04-26 10:18] LABS: BUN/Creatinine Ratio 7.8 (10.0-20.0); Blood Urea Nitrogen < 5 mg/dL (9-23)
[2025-04-26] MEDS ORDERED: LIDOCAINE VISCOUS 2% 15ML UD ONE (12:25)
[2025-04-26] MEDS ORDERED: fentaNYL CITRATE 100 MCG/2 ML VL ONE (13:00)
[2025-04-26] MEDS ORDERED: MIDAZOLAM HCL 2MG/2ML 2ml VIAL (1mg/ml) ONE (13:00)
[2025-04-26] MEDS ORDERED: PROPOFOL 10 MG/ML 20 ML IV ONE (13:09)
[2025-04-26 13:20] VITALS: PULSE 82; RESP 12; TEMP 97.2; O2SAT 100
--- NOTE | 2025-04-26 13:43 | DVHOP2 ---
Operative Report DATE OF OPERATION: 04/26/25 PROCEDURE: Upper Endoscopy with biopsy dilate esophagus unguided PREOPERATIVE INDICATION: The patient is a 55 -year-old male undergoing endoscopy for dysphagia and weight loss POSTOPERATIVE DIAGNOSES: 1. Mild spasticity of the proximal esophagus and upper esophageal sphincter 2. 1 cm sliding-type hiatal hernia with no significant erosive esophagitis 3. Mild gastroduodenitis otherwise normal examination up to the 2nd and 3rd part of the duodenum 4. Esophagus was dilated serially with Bosch number [id number] and 48 PROCEDURE PERFORMED BY: Loren Barone GI NURSE: Ana SCOPE: Olympus videoendoscope. ASA CLASS: 2. PREOPERATIVE MEDICATIONS: Mac geeta, Dr. Antony PROCEDURE IN DETAIL: After obtaining an informed consent, the patient was placed on left lateral decubitus position. The patient was then sedated with the above medications. A bite block was placed between his teeth. The endoscope was then passed through the oropharynx, into the esophagus, and through the stomach and pylorus up to the second and third part of the duodenum. The endoscope was then withdrawn. The 2nd and 3rd part of the duodenal were normal. Duodenal bulb and postbulbar area showed mild duodenitis. Duodenal biopsies were obtained The pre-pyloric area and antrum and body showed minimal gastritis. Gastric biopsies were obtained. On retroflexion the fundus and cardia were normal The endoscope was then withdrawn into distal esophagus where the patient had a 0.5 cm to 1 cm sliding-type hiatal hernia. There was no significant erosive esophagitis The remaining distal and proximal esophagus were unremarkable except for some tertiary contractions and spasticity of the upper esophageal sphincter area. The endoscope was then withdrawn. A Bosch dilator number 44 was passed through the esophagus with no significant resistance This was followed by passing a Bosch dilator number 48 through the esophagus with mild resistance at the upper esophageal sphincter area Repeat endoscopy confirmed adequate dilatation. There was minimal mucosal separation in the proximal esophagus. GE junction biopsies were obtained. The patient tolerated the procedure well without difficulty. COMPLICATIONS : None SPECIMENS: Duodenal biopsies Gastric biopsies GE junction biopsies DISPOSITION: Transfer back to the floor Stable PLAN: 1. Await for biopsy result 2. Will place pt on Protonix 40 mg bid p.o. 3. Carafate suspension 1 g p.o. twice a day 4. Full liquid diet advance to soft mechanical 5. Outpatient follow up with me in 2-4 weeks to review results discuss further management, consider CT chest and elective outpt colonoscopy LOREN BARONE MD Apr 26, 2025 13:43
[2025-04-26] MEDS: OMNIPAQUE 12mg/ml 500ml ORAL SOLUTION PO ONE (14:32)
[2025-04-26 14:49] VITALS: BP 126/77; PULSE 63; RESP 19; O2SAT 98
--- NOTE | 2025-04-26 19:56 | DVHDS2 ---
Discharge Summary Date of Admission Apr 22, 2025 at 13:33 Date of Discharge: Apr 26, 2025 Labs/Diagnostic Data: Laboratory Results Test 04/26/25 09:04 04/25/25 10:59 04/24/25 10:27 04/23/25 05:28 White Blood Count 8.1 10^3/uL (4.4-10.8) Red Blood Count 3.86 10^6/uL (4.5-5.90) Hemoglobin 13.0 g/dL (13.5-17.5) Hematocrit 39.6 % (41.0-53.0) Mean Corpuscular Volume 102.5 fL (80.0-100.0) Mean Corpuscular Hemoglobin 33.7 pg (28.0-32.0) Mean Corpuscular Hemoglobin Concent 32.9 g/dL (32.0-36.0) Red Cell Distribution Width 16.5 % (11.8-14.3) Platelet Count 240 10^3/uL (140-450) Mean Platelet Volume 6.7 fL (6.9-10.8) Neutrophils (%) (Auto) 67.7 % (37.0-80.0) Lymphocytes (%) (Auto) 26.6 % (10.0-50.0) Monocytes (%) (Auto) 4.4 % (0.0-12.0) Eosinophils (%) (Auto) 0.9 % (0.0-7.0) Basophils (%) (Auto) 0.4 % (0.0-2.0) Neutrophils # (Auto) 5.5 10 ^3/uL (1.6-8.6) Lymphocytes # (Auto) 2.2 10 ^3/uL (0.4-5.4) Monocytes # (Auto) 0.4 10 ^3/uL (0-1.3) Eosinophils # (Auto) 0.1 10 ^3/uL (0-0.8) Basophils # (Auto) 0 10 ^3/uL (0-0.2) Nucleated Red Blood Cells 0.1 % Sodium Level 141 mmol/L (136-145) Potassium Level 4.4 mmol/L (3.5-5.1) Chloride Level 108 mmol/L (98-107) Carbon Dioxide Level 28 mmol/L (20-31) Anion Gap 5 (5-15) Blood Urea Nitrogen < 5 mg/dL (9-23) Creatinine 0.64 mg/dL (0.700-1.30) Glomerular Filtration Rate Calc 111 mL/min (>90) BUN/Creatinine Ratio 7.8 (10.0-20.0) Serum Glucose 82 mg/dL (74-106) Calcium Level 9.1 mg/dL (8.7-10.4) Phosphorus Level 3.2 mg/dL (2.4-5.1) Magnesium Level 2.4 mg/dL (1.6-2.6) Total Bilirubin 0.3 mg/dL (0.2-1.0) Aspartate Amino Transferase (AST) 24 U/L (13-40) Alanine Aminotransferase (ALT) 22 U/L (7-40) Alkaline Phosphatase 50 U/L (46-116) Total Protein 5.9 g/dL (5.7-8.2) Albumin 4.0 g/dL (3.2-4.8) Prothrombin Time 11.4 sec (9.3-11.8) Prothrombin Time INR 1.08 (0.9-1.15) Activated Partial Thromboplast Time 24.4 SEC (24.5-34.5) Hepatitis B Surface Antigen Negative (Negative) Hepatitis C Antibody Negative (Negative) Test 04/22/25 04:44 04/22/25 00:44 04/22/25 00:00 Triglycerides Level 134 mg/dL (< 150) Cholesterol Level 237 mg/dL (< 200) LDL Cholesterol 101 mg/dL (< 100) HDL Cholesterol 112 mg/dL (40-59) Troponin I High Sensitivity 24 ng/L (</=54) B-Type Natriuretic Peptide 315.75 pg/mL (0-100) Lipase 35 U/L (12-53) Other Laboratory Tests 04/26/25 09:04 Brief Hx & Hospital Course: History of Present Illness inocencia Freeman is a patient with a history of hypertension presenting with chest pain. He was scheduled for a cardiac catheterization today to evaluate this complaint. The patient is currently in the catheterization lab undergoing the procedure. The exact nature, onset, duration, and severity of the chest pain are not specified in the provided information. Additionally, the patient has been experiencing epigastric pain, which may be related to the chest pain or could be a separate issue. Due to this epigastric pain, there is consideration for a possible endoscopy, though this plan is still under discussion pending the results of the cardiac catheterization. Sheila Zelaya is a 55 y/o male patient with a history of hypertension that presented with chest pain. Patient underwent cardiac catheterization to evaluate chest pain. Cardiology consulted for medical management. Patient also presented with epigastric pain. [employer] Dr. Campbell was consulted and Upper Endoscopy with biopsy dilate esophagus unguided was completed. Patient will follow up with GI outpatient in 2-4 weeks and consider outpatient colonoscopy. Patient was placed on Protonix 40 mg PO BID and Carafate 1 g PO BID. Patient was cleared for discharge home. The patient received proper medical treatment and medications. Vital signs, Imaging and Laboratory Work was monitored. All consults recommendations were followed as provided. There were no complaints or new complaints upon discharge, all questions and concerns were answered. Patient was advised to return to the ER or call 911 if any headaches, dizziness, shortness of breath, chest pain, bleeding, fevers, or worsening of medical condition. Patient/Family was counseled about treatment plan, medications, possible side effects, patientverbalized understanding. All questions were answered to the best of my ability. The patient symptoms improved and they are okay to be DC. Condition at Discharge: Stable Final Diagnosis/Problems List Epigastric pain HX of h. Pylori non-obstructive CAD Chest pain Hypertension Discharge Disposition: Home Discharge Instruct/Medications Diet: Cardiac 2g Na,low cholest Diet comment: NO SPICY FOODS. Activity: No Restrictions, As Tolerated Follow Up/Referral: pcp 1 week cardiology 2 weeks Medications: as prescribed Scheduled Amlodipine Besylate (Norvasc Tablet), 10 MG PO DAILY Aspirin (Aspirin Low Dose), 81 MG PO DAILY Empagliflozin (Jardiance), 10 MG PO DAILY Metoprolol Succinate (Toprol Xl), 25 MG PO DAILY Pantoprazole Sodium Sesquihydr (Pantoprazole Sodium), 40 MG PO BID Pravastatin Sodium (Pravachol Tablet), 40 MG PO HS Sacubitril-Valsartan (Entresto 24-26 mg), 1 TAB PO BID Spironolactone (Aldactone), 25 MG PO DAILY Sucralfate (Carafate), 1 GM OR BID Discontinued Medications Amlodipine Besylate (Amlodipine Besylate), 1 TAB PO DAILY, (Reported) Aspirin (Aspirin Low Dose), 1 TAB PO DAILY, (Reported) Atorvastatin Calcium (Atorvastatin Calcium), 1 TAB PO HS, (Reported) Empagliflozin (Jardiance), 1 TAB PO DAILY, (Reported) Hydrochlorothiazide W/Triamter (Triamterene/Hydrochloroth), 1 TAB PO DAILY, (Reported) Metoclopramide Hcl (Metoclopramide Hcl), 1 TAB PO Q6HPRN PRN, (Reported) Metoprolol Succinate (Metoprolol Succinate Er), 1 TAB PO DAILY, (Reported) Omeprazole (Omeprazole Dr), 1 CAP PO DAILY, (Reported) Spironolactone (Spironolactone), 0.5 TAB PO DAILY, (Reported) 40 Discharge Statement: "Patient was advised to return to the ER or call 911 if any headaches, dizziness, shortness of breath, chest pain, abdominal pain, bleeding, fevers, or worsening of medical condition. Patient was counseled about treatment plan, medications, possible side effects, patientverbalized understanding. All questions were answered to the best of my ability. This discharge took greater then 30 minutes in planning, reviewing documentation, counseling the patient, and discussing with other team members." ASSESSMENT ASSESSMENT Assessment Epigastric pain HX of h. Pylori non-obstructive CAD HUGH HAMMER MD Apr 26, 2025 19:56
== END 2025-04-26 16:50 | disposition home or self-care (01) | DRG 191 ==
LOC: EDSEX 23:47 → EDBD 23:47 → ER 23:47 → OVERFLOW 04-22 13:33 → TELE-EAST 04-22 22:40
PROVIDERS: ADMIT Internal Medicine; ATTEND Internal Medicine
PROC: 4A023N7 Measurement of Cardiac Sampling and Pressure, Left Heart, Percutaneous Approach (ICD-10-PCS; principal; 2025-04-24)
PROC: B211YZZ Fluoroscopy of Multiple Coronary Arteries using Other Contrast (ICD-10-PCS; 2025-04-24)
PROC: B215YZZ Fluoroscopy of Left Heart using Other Contrast (ICD-10-PCS; 2025-04-24)
PROC: 0DB98ZX Excision of Duodenum, Via Natural or Artificial Opening Endoscopic, Diagnostic (ICD-10-PCS; 2025-04-26)
PROC: 0DB68ZX Excision of Stomach, Via Natural or Artificial Opening Endoscopic, Diagnostic (ICD-10-PCS; 2025-04-26)
PROC: 0DB48ZX Excision of Esophagogastric Junction, Via Natural or Artificial Opening Endoscopic, Diagnostic (ICD-10-PCS; 2025-04-26)
DX: I25.110 Atherosclerotic heart disease of native coronary artery with unstable angina pectoris (principal); I25.3 Aneurysm of heart; I50.22 Chronic systolic (congestive) heart failure; I11.0 Hypertensive heart disease with heart failure; K29.90 Gastroduodenitis, unspecified, without bleeding; K29.80 Duodenitis without bleeding; K29.70 Gastritis, unspecified, without bleeding; K76.0 Fatty (change of) liver, not elsewhere classified; K44.9 Diaphragmatic hernia without obstruction or gangrene; E78.5 Hyperlipidemia, unspecified; F17.200 Nicotine dependence, unspecified, uncomplicated; R13.10 Dysphagia, unspecified; N40.1 Benign prostatic hyperplasia with lower urinary tract symptoms; K80.20 Calculus of gallbladder without cholecystitis without obstruction; K21.9 Gastro-esophageal reflux disease without esophagitis; Z82.49 Family history of ischemic heart disease and other diseases of the circulatory system; Z79.899 Other long term (current) drug therapy; Z79.82 Long term (current) use of aspirin; Z79.84 Long term (current) use of oral hypoglycemic drugs; Z86.19 Personal history of other infectious and parasitic diseases
CPT/HCPCS: 36415; 43239; 71045; 74176; 76700; 80048; 80053; 80061; 83690; 83735; 83880; 84100; 84484; 85025; 85610; 85730; 86803; 86850; 86900; 86901; 87340; 93005; 93306; 93458; 96374; 96375; 99152; G0378; J1100; J2250; J2405; J2470; J2704; Q9967

== ENCOUNTER 2025-05-06 16:28 | Emergency (ER) | payer MEDICAID ==
[~2025-05-06] VITALS: Ht 165.1 cm; Wt 53.3 kg
[~2025-05-06 16:28] MED LIST changes: +AML5T PO; +ASPI-325 PO; -ATOR20TA50 PO; +EMPA1TAB PO; +METO-6 PO; +PANT40T PO; +PRAV20TA3 PO; +SACU1TAB PO; +SPIR25TA PO; -SPIR25TA8 PO; +SUCR1TAB31 OR; -TRIA37.586 PO
[2025-05-06 17:00] VITALS: PULSE 75; RESP 19; O2SAT 100
[2025-05-06 17:01] LABS: Hematocrit 37.2 % (41.0-53.0); Hemoglobin 12.3 g/dL (13.5-17.5); Mean Corpuscular Hemoglobin 33.4 pg (28.0-32.0); Mean Corpuscular Volume 100.8 fL (80.0-100.0); Nucleated Red Blood Cells % 0.1 %
[2025-05-06 17:06] LABS: Chloride 101 mmol/L (98-107)
[2025-05-06 17:07] LABS: Anion Gap 12 (5-15); Carbon Dioxide 23 mmol/L (20-31)
[2025-05-06 17:08] LABS: Calcium 9.1 mg/dL (8.7-10.4)
[2025-05-06 17:12] LABS: Glucose 90 mg/dL (74-106)
[2025-05-06 17:13] LABS: BUN/Creatinine Ratio 16.0 (10.0-20.0)
[2025-05-06 17:14] LABS: Potassium 3.4 mmol/L (3.5-5.1); Sodium 136 mmol/L (136-145)
[2025-05-06 17:15] LABS: Blood Urea Nitrogen 8 mg/dL (9-23)
[2025-05-06 18:23] LABS: Urine Amorphous Crystal FEW /hpf (None Seen); Urine Protein, UAD Negative (Negative); Urine WBC Clumps PRESENT /hpf (None Seen)
--- NOTE | 2025-05-06 19:05 | ED.PDOC ---
General HPI Comments 55 y/o M, with a HX of h. Pylori, CAD, CHF, HTN, and cholelithiasis, presents with c/c inability to urinate since this morning around 9:00 a.m., with associated bladder fullness and lower abdominal pressure-sensation. He denies fever, nausea, vomiting, edema, dysuria or hematuria Chief Complaint: Urinary Time Seen by MD: 18:30 Reviewed notes: Nurses Notes, Medications, Allergies Allergies: Coded Allergies: NO KNOWN ALLERGIES (Unverified , 03/14/25) Home Meds Active Scripts Sucralfate (CARAFATE) 1 Gm Tab, 1 GM OR BID for 30 Days, #60 TAB Prov:ALEX SU [employer] 04/25/25 Pantoprazole Sodium Sesquihydr (Pantoprazole Sodium) 40 Mg Tab, 40 MG PO BID for 30 Days, #60 TAB Prov:ALEX SU [facility] 04/25/25 Pravastatin Sodium (PRAVACHOL TABLET) 20 Mg Tb, 40 MG PO HS for 30 Days, #60 TAB Prov:ALEX SU [facility] 04/25/25 Spironolactone (Aldactone) 25 Mg Tab, 25 MG PO DAILY for 30 Days, #30 TAB Prov:ALEX SU [facility] 04/25/25 Sacubitril-Valsartan (Entresto 24-26 mg) 1 Tab Tab, 1 TAB PO BID for 30 Days, #60 TAB Prov:ALEX SU [facility] 04/25/25 Metoprolol Succinate (Toprol Xl) 50 Mg Tab, 25 MG PO DAILY for 30 Days, #15 TAB Prov:ALEX SU [employer] O[employer] 04/25/25 Aspirin (Aspirin Low Dose) 81 Mg Tab, 81 MG PO DAILY for 30 Days, #30 TAB Prov:ALEX SU [facility] 04/25/25 Amlodipine Besylate (NORVASC TABLET) 5 Mg Tb, 10 MG PO DAILY for 30 Days, #60 TAB Prov:ALEX SU [employer] O[employer] 04/25/25 Empagliflozin (Jardiance) 10 Mg Tab, 10 MG PO DAILY for 30 Days, #30 TAB Prov:ALEX SU [employer] O[employer]ATOR 04/25/25 Information Source: Patient Mode of Arrival: Ambulatory Past Medical History PAST MEDICAL HISTORY: CAD, CHF, Gallstones, HTN Past Medical History (Other): HX of h. Pylori Surgical History: Denies all surgeries Family History Family History: Reviewed,noncontributory to illness Social History Smoker: Non-Smoker Alcohol: Denies ETOH Use Drugs: Denies Drug Use Lives In: Home All Other Systems: Reviewed and Negative (Comprehensive systems review obtained and negative except for what is stated in the HPI.) Physical Exam General Appearance: No Apparent Distress HEENT: Other (Pupils and face symmetric. Moist mucous membranes.) Neck: Full Range of Motion, Normal Inspection Respiratory: Lungs Clear, No Accessory Muscle Use, No Respiratory Distress, Normal Breath Sounds Cardiovascular: No Edema, No JVD, Regular Rate/Rhythm Breast Exam: Deferred Gastrointestinal: Distended (Suprapubic), Soft, Suprapubic, Tenderness Genitalia: Deferred Pelvic: Deferred Rectal: Deferred Extremities: Normal inspection, Normal range of motion, Non-tender, No pedal edema Neurologic: Alert (Oriented x4), Normal Affect, Normal Mood, Other (Ambulatory) Cerebellar Function: NOT DONE Reflexes: NOT DONE Skin: Dry, Normal Color, Warm Lymphatic: NOT DONE Was a procedure done? Was a procedure done?: No Differential Diagnosis Kidney stone (Female): N/A Kidney stone (Male): N/A Penile/Scrotal: N/A Urinary Problem (Male): Bladder Outlet, Bladder Obstruction, Plelonephritis, Renal Failure, Urinary Retention, Urolithiasis, UTI Urinary Problem (Female): N/A X-Ray, Labs, Meds, VS Vital Signs Date Time Temp Pulse Resp B/P (MAP) Pulse Ox O2 Delivery O2 Flow Rate FiO2 05/06/25 20:00 82 18 120/78 (92) 99 05/06/25 19:00 81 19 128/78 (95) 99 05/06/25 18:00 74 22 133/76 (95) 99 05/06/25 17:00 75 19 100 Room Air* 0 21 05/06/25 17:00 98.3 75 19 157/85 (109) 100 98.3 05/06/25 16:29 98.2 10 18 176/94 97 98.2 Lab Test 05/06/25 17:51 05/06/25 16:49 Range/Units Urine Color Colorless Yellow Urine Clarity Turbid H Clear Urine pH 7.5 5.0-9.0 Urine Specific [place] 1.015 1.001-1.035 Urine Protein Negative Negative Urine Ketones Negative Negative Urine Blood Negative Negative /uL Urine Nitrite Negative Negative Urine Bilirubin Negative Negative Urine Urobilinogen Normal Negative mg/dL Urine Leukocyte Esterase Negative Negative /uL Urine RBC 5 0 - 3 /hpf Urine WBC Clumps Present None Seen /hpf Urine Microscopic WBC 7 H 0-3 /HPF Urine Squamous Epithelial Cells Few <5 /hpf Urine Amorphous Crystals Few None Seen /hpf Urine Bacteria None seen None Seen /hpf Urine Glucose Normal Normal mg/dL White Blood Count 10.8 4.4-10.8 10^3/uL Red Blood Count 3.69 L 4.5-5.90 10^6/uL Hemoglobin 12.3 L 13.5-17.5 g/dL Hematocrit 37.2 L 41.0-53.0 % Mean Corpuscular Volume 100.8 H 80.0-100.0 fL Mean Corpuscular Hemoglobin 33.4 H 28.0-32.0 pg Mean Corpuscular Hemoglobin Concent 33.1 32.0-36.0 g/dL Red Cell Distribution Width 16.3 H 11.8-14.3 % Platelet Count 332 140-450 10^3/uL Mean Platelet Volume 6.4 L 6.9-10.8 fL Neutrophils (%) (Auto) 85.7 H 37.0-80.0 % Lymphocytes (%) (Auto) 11.0 10.0-50.0 % Monocytes (%) (Auto) 2.4 0.0-12.0 % Eosinophils (%) (Auto) 0.1 0.0-7.0 % Basophils (%) (Auto) 0.8 0.0-2.0 % Neutrophils # (Auto) 9.3 H 1.6-8.6 10 ^3/uL Lymphocytes # (Auto) 1.2 0.4-5.4 10 ^3/uL Monocytes # (Auto) 0.3 0-1.3 10 ^3/uL Eosinophils # (Auto) 0 0-0.8 10 ^3/uL Basophils # (Auto) 0.1 0-0.2 10 ^3/uL Nucleated Red Blood Cells 0.1 % Sodium Level 136 136-145 mmol/L Potassium Level 3.4 L 3.5-5.1 mmol/L Chloride Level 101 98-107 mmol/L Carbon Dioxide Level 23 20-31 mmol/L Anion Gap 12 5-15 Blood Urea Nitrogen 8 L 9-23 mg/dL Creatinine 0.50 L 0.700-1.30 mg/dL Glomerular Filtration Rate Calc 120 >90 mL/min BUN/Creatinine Ratio 16.0 10.0-20.0 Serum Glucose 90 74-106 mg/dL Calcium Level 9.1 8.7-10.4 mg/dL X-Ray, Labs, Meds, VS Comment 55 y/o M, with a HX of h. Pylori, CAD, CHF, HTN, and cholelithiasis, presents with c/c inability to urinate since this morning around 9:00 a.m., with associated bladder fullness and lower abdominal pressure-sensation. Initial vitals remarkable for BP 176/94 Exam remarkable for suprapubic tenderness and distention Rhythm strip independently interpreted by me: Sinus rhythm, rate 75, no ectopy. CBC remarkable for hemoglobin 12.3, hematocrit 37.2, basic metabolic panel remarkable for potassium 3.4, UA unremarkable Patient treated with the following in the ED: Méndez catheter inserted with initial output of approximately 900 cc urine and relief of suprapubic pain and distention Effervescent potassium 50 mEq p.o. On re-evaluation, patient is resting comfortably and not in any distress. He is not in pain. He appears stable for discharge with close outpatient follow-up with his primary physician. He will be referred to Dr. Hutchison for urology follow- up as well. Time of 1ST Reevaluation: 19:00 Reevaluation 1ST: Unchanged Time of 2ND Reevaluation: 21:00 Reevaluation 2ND: Improved Patient Education/Counseling: Diagnosis, Treatment, Need For Follow Up Family Education/Counseling: No Family Present SEPSIS Sepsis Screen Date sepsis recognized/suspect: May 06, 2025 Time Sepsis recognized/suspect: 1700 Recent Procedure: No On Antibiotic Therapy: No Respiratory Rate >20: No Heart Rate >90: No Temp<36 C (96.8 F) or >38.3 C: No SBP <90 or MAP <65 mmHG: No New Acute Mental Status Change: No Is the patient on CPAP, BIPAP,: No Physician Orders Insert/Manage Urinary Catheter QSHIFT (05/06/25 16:38) Vital Signs Date Time Temp Pulse Resp B/P (MAP) Pulse Ox O2 Delivery O2 Flow Rate FiO2 8/23/25 20:00 82 18 120/78 (92) 99 05/06/25 19:00 81 19 128/78 (95) 99 05/06/25 18:00 74 22 133/76 (95) 99 05/06/25 17:00 75 19 100 Room Air* 0 21 05/06/25 17:00 98.3 75 19 157/85 (109) 100 98.3 05/06/25 16:29 98.2 10 18 176/94 97 98.2 Laboratory Tests Test 05/06/25 16:49 White Blood Count 10.8 10^3/uL (4.4-10.8) Departure 1 Departure Time of Disposition: 21:00 Impression: Primary Impression: Urinary retention Disposition: HOME / SELF CARE / HOMELESS Condition: Stable Referrals: MAGDALENA HUTCHISON MD Additional Instructions: Your blood tests, including kidney function tests were unremarkable except for slightly low potassium. We have corrected the potassium in the ER. Your urine test was unremarkable. Follow-up with your primary doctor or in 2 days for recheck and Méndez catheter removal. Follow-up with Dr. Hutchison, urologist, for further evaluation of urinary retention. Discharged With: Self Critical Care Note Critical Care Time?: No Stability Stability form required: No Heart Score Heart Score: Heart Score Response (Comments) Value History N/A 0 EKG N/A 0 Age N/A 0 Risk Factors N/A 0 Troponin N/A 0 Total 0 I personally scribed for CHRISTINA KOCH MD ([email or web address]) on 05/06/25 at 19:05. Electronically submitted by Mario Calle ([email or web address]). CHRISTIAN KOCH MD May 06, 2025 19:05
[2025-05-06] MEDS: POTASSIUM EFFERVESENT TAB 25 MEQ PO ONE (21:23)
[2025-05-06] MEDS: ACETAMINOPHEN 325 MG TAB PO ONE (21:24)
[2025-05-06 22:00] VITALS: BP 147/87; PULSE 79; RESP 20; TEMP 98; O2SAT 100
== END 2025-05-06 22:05 | disposition home or self-care (01) ==
LOC: ER 16:28
DX: R33.9 Retention of urine, unspecified (principal); I11.0 Hypertensive heart disease with heart failure; I50.9 Heart failure, unspecified; I25.10 Atherosclerotic heart disease of native coronary artery without angina pectoris; Z79.899 Other long term (current) drug therapy; Z86.19 Personal history of other infectious and parasitic diseases; Z79.84 Long term (current) use of oral hypoglycemic drugs; Z79.82 Long term (current) use of aspirin
CPT/HCPCS: 36415; 51702; 80048; 81001; 85025; 99285; A4315

== ENCOUNTER 2025-05-09 09:19 | Emergency (ER) | payer MEDICAID ==
[~2025-05-09] VITALS: Ht 165.1 cm; Wt 51.1 kg
--- NOTE | 2025-05-09 10:49 | ED.PDOC ---
General HPI Comments 55 y/o M, with a HX of h. Pylori, CAD, CHF, HTN, and cholelithiasis, presents to the ED for follow up. Patient came to the ED on Thursday05/06/25, for acute urinary retention. Patient reports a pending appointment with Urology. Chief Complaint: Tube Replacement Time Seen by MD: 10:06 Reviewed notes: Nurses Notes, Medications, Allergies Allergies: Coded Allergies: NO KNOWN ALLERGIES (Unverified , 03/14/25) Home Meds Active Scripts Tamsulosin Hcl (Flomax) 0.4 Mg Cap, 1 CAP PO DAILY, #90 CAP 0 Refills Prov:SHEILA KERR [employer]TER 05/09/25 Sucralfate (CARAFATE) 1 Gm Tab, 1 GM OR BID for 30 Days, #60 TAB Prov:ALEX SU NP 04/25/25 Pantoprazole Sodium Sesquihydr (Pantoprazole Sodium) 40 Mg Tab, 40 MG PO BID for 30 Days, #60 TAB Prov:ALEX SU NP 04/25/25 Pravastatin Sodium (PRAVACHOL TABLET) 20 Mg Tb, 40 MG PO HS for 30 Days, #60 TAB Prov:ALEX SU NP 04/25/25 Spironolactone (Aldactone) 25 Mg Tab, 25 MG PO DAILY for 30 Days, #30 TAB Prov:ALEX SU NP 04/25/25 Sacubitril-Valsartan (Entresto 24-26 mg) 1 Tab Tab, 1 TAB PO BID for 30 Days, #60 TAB Prov:ALEX SU NP 04/25/25 Metoprolol Succinate (Toprol Xl) 50 Mg Tab, 25 MG PO DAILY for 30 Days, #15 TAB Prov:ALEX SU NP 04/25/25 Aspirin (Aspirin Low Dose) 81 Mg Tab, 81 MG PO DAILY for 30 Days, #30 TAB Prov:ALEX SU NP 04/25/25 Amlodipine Besylate (NORVASC TABLET) 5 Mg Tb, 10 MG PO DAILY for 30 Days, #60 TAB Prov:ALEX SU NP 04/25/25 Empagliflozin (Jardiance) 10 Mg Tab, 10 MG PO DAILY for 30 Days, #30 TAB Prov:ALEX SU NP 04/25/25 Information Source: Patient Mode of Arrival: Ambulatory Severity: Moderate Duration: Since onset Past Medical History PAST MEDICAL HISTORY: CAD, CHF, Gallstones, HTN Surgical History: Denies all surgeries Family History Family History: Reviewed,noncontributory to illness Social History Smoker: Non-Smoker Alcohol: Denies ETOH Use Drugs: Denies Drug Use Lives In: Home Constitutional: denies: chills, diaphoresis, fatigue, fever, malaise, sweats, weakness, others EENTM: denies: blurred vision, double vision, ear bleeding, ear discharge, ear drainage, ear pain, ear ringing, eye pain, eye redness, hearing loss, mouth pain, mouth swelling, nasal discharge, nose bleeding, nose congestion, nose pain, photophobia, tearing, throat pain, throat swelling, voice changes, others Respiratory: denies: cough, hemoptysis, orthopnea, SOB at rest, shortness of breath, SOB with excertion, stridor, wheezing, others Cardiovascular: denies: chest pain, dizzy spells, diaphoresis, Dyspnea on exertion, edema, irregular heart beat, left arm pain, lightheadedness, palpitations, PND, syncope, others Gastrointestinal: denies: abdomen distended, abdominal pain, blood streaked bowels, constipated, diarrhea, dysphagia, difficulty swallowing, hematemesis, melena, nausea, poor appetite, poor fluid intake, rectal bleeding, rectal pain, vomiting, others Genitourinary: reports: others (per HPI ); denies: burning, dysuria, flank pain, frequency, hematuria, incontinence, penile discharge, penile sore, pain, testicle pain, testicle swelling, urgency Neurological: denies: dizziness, fainting, headache, left sided numbness, left sided weakness, numbness, paresthesia, pre-existing deficit, right sided numbness, right sided weakness, seizure, speech problems, tingling, tremors, weakness, others Musculoskeletal: denies: back pain, gout, joint pain, joint swelling, muscle pain, muscle stiffness, neck pain, others Integumetry: denies: bruises, change in color, change in hair/nails, dryness, laceration, lesions, lumps, rash, wounds, others Allergic/Immunocompromised: denies: Difficulty Healing, Frequent Infections, Hives, Itching, others Hematologic/Lymphatic: denies: anemia, blood clots, easy bleeding, easy bruising, swollen glands, others Endocrine: denies: excessive hunger, excessive sweating, excessive thirst, excessive urination, flushing, intolerance to cold, intolerance to heat, un explained weight gain, unexplained weight loss, others Psychiatric: denies: anxiety, bipolar disorder, depression, hopeless, panic disorder, schizophrenia, sleepless, suicidal, others All Other Systems: Reviewed and Negative Physical Exam General Appearance: Moderate Distress, Normal HEENT: Normal ENT Inspection, Pharynx Normal, TMs Normal Neck: Full Range of Motion, Non-Tender, Normal, Normal Inspection Respiratory: Chest Non-Tender, Lungs Clear, No Accessory Muscle Use, No Respiratory Distress, Normal Breath Sounds Cardiovascular: No Edema, No JVD, No Murmur, No Gallop, Normal Peripheral Pulse s, Regular Rate/Rhythm Breast Exam: Deferred Gastrointestinal: No Organomegaly, Non Tender, No Pulsatile Mass, Normal Bowel Sounds, Soft Genitalia: Deferred Pelvic: Deferred Rectal: Deferred Extremities: No calf tenderness, Normal capillary refill, Normal inspection, Normal range of motion, Non-tender, No pedal edema Musculoskeletal : Apperance: Normal Neurologic: Alert, industrial trainer II-XII nml as Tested, No Motor Deficits, Normal Affect, Normal Mood, No Sensory Deficits Cerebellar Function: Normal Reflexes: Normal Skin: Dry, Normal Color, Warm Lymphatic: No Adenopathy Was a procedure done? Was a procedure done?: No Differential Diagnosis Kidney stone (Female): Other Urinary Problem (Male): Prostatitis, Urinary Retention, UTI X-Ray, Labs, Meds, VS Vital Signs Date Time Temp Pulse Resp B/P (MAP) Pulse Ox O2 Delivery O2 Flow Rate FiO2 05/09/25 10:56 77 16 98 Room Air 05/09/25 10:56 98.2 77 17 132/88 (103) 97 98.2 05/09/25 09:21 98.9 118 19 124/71 100 98.9 X-Ray, Labs, Meds, VS Comment 55 y/o M, with a HX of h. Pylori, CAD, CHF, HTN, and cholelithiasis, presents to the ED for catheter removal. Patient arrives alert and oriented, ABC's intact, afebrile, vital signs stable, saturating well in room air Patient is stable for discharge at this time. External notes reviewed. Test results and diagnostic imaging interpreted. All diagnostic findings, discharge care, education and instructions provided Follow-up with PCP in 2 to 3 days Patient verbalized understanding and agreed to treatment plan Vital signs stable, afebrile, no acute distress noted Patient ambulatory with strong steady gait Advised to return precautions for any new or worsening symptoms, return to ER immediately for re-evaluation Patient is aware that the purpose of this visit was for an acute medical emergency requiring emergent stabilization. Chronic conditions, including malignancies have not been ruled out. Patient is instructed to follow up with PCP as directed and discharge instructions for continued care and workup. If unable to arrange follow-up, patient is to return to the emergency department for reassessment. Patient (parent or legal guardian if applicable) was given verbal and written discharge instructions and acknowledges understanding. Additional MDM Review of External, Non-ED records: External records reviewed. Discussion with independent historian (EMS, family) history obtained from the patient/parents (if applicable) at bedside Chronic conditions affecting care: None Social determinants of health affecting care: None Consideration of admission (observation or admission): I considered escalation of care to admission for this patient, however given the reassuring workup, the patient is safe for outpatient management. Discussion with the Radiology: No Tests considered but not performed: Prescription medication considered but not given: Images Reviewed?: Images reviewed and evaluated by me Time of 1ST Reevaluation: 10:58 Reevaluation 1ST: Unchanged Patient Education/Counseling: Diagnosis, Treatment, Need For Follow Up Family Education/Counseling: No Family Present Medical Screening: No EMC Exist At This Time SEPSIS Sepsis Screen Date sepsis recognized/suspect: May 09, 2025 Time Sepsis recognized/suspect: 920 Recent Procedure: No On Antibiotic Therapy: No Respiratory Rate >20: No Heart Rate >90: Yes Temp<36 C (96.8 F) or >38.3 C: No SBP <90 or MAP <65 mmHG: No New Acute Mental Status Change: No Is the patient on CPAP, BIPAP,: No Vital Signs Date Time Temp Pulse Resp B/P (MAP) Pulse Ox O2 Delivery O2 Flow Rate FiO2 05/09/25 10:56 77 16 98 Room Air 05/09/25 10:56 98.2 77 17 132/88 (103) 97 98.2 05/09/25 09:21 98.9 118 19 124/71 100 98.9 Departure 1 Departure Time of Disposition: 10:49 Impression: Primary Impression: Méndez catheter status Disposition: HOME / SELF CARE / HOMELESS Condition: Stable Additional Instructions: Follow up with PCP in 1-2 days. Take medications as prescribed. Return to the ED for any new or worsening symptoms. e-Prescriptions Tamsulosin Hcl (Flomax) 0.4 Mg Cap 1 CAP PO DAILY, #90 CAP 0 Refills Prov: SHEILA KERR NP 05/09/25 Discharged With: Self Critical Care Note Critical Care Time?: No Stability Stability form required: No Heart Score Heart Score: Heart Score Response (Comments) Value History N/A 0 EKG N/A 0 Age N/A 0 Risk Factors N/A 0 Troponin N/A 0 Total 0 I personally scribed for SHEILA KERR NP ([email or web address]) on 05/09/25 at 10:57. Electronically submitted by Rachel Reddy ([email or web address]). I personally scribed for SHEILA KERR NP ([email or web address]) on 05/09/25 at 10:58. Electronically submitted by Rachel Reddy ([email or web address]). SHEILA KERR NP May 09, 2025 10:49
[2025-05-09] MEDS ORDERED: TAMS-35 PO (10:51)
[2025-05-09 10:56] VITALS: BP 132/88; PULSE 77; RESP 16; TEMP 98.2; O2SAT 98
== END 2025-05-09 10:57 | disposition home or self-care (01) ==
LOC: ER 09:19
DX: Z46.6 Encounter for fitting and adjustment of urinary device (principal); I11.0 Hypertensive heart disease with heart failure; I50.9 Heart failure, unspecified; I25.10 Atherosclerotic heart disease of native coronary artery without angina pectoris; Z79.899 Other long term (current) drug therapy; Z79.84 Long term (current) use of oral hypoglycemic drugs; Z79.82 Long term (current) use of aspirin

== ENCOUNTER → 2025-06-02 | Outpatient (CLI) | payer MEDICAID ==
[~2025-06-02] MED LIST changes: +TAMS-35 PO
[2025-06-02 12:40] LABS: Hematocrit 39.2 % (41.0-53.0); Hemoglobin 12.8 g/dL (13.5-17.5); Mean Corpuscular Hemoglobin 31.7 pg (28.0-32.0); Mean Corpuscular Volume 97.5 fL (80.0-100.0); Nucleated Red Blood Cells % 0.1 %
[2025-06-02 12:46] LABS: Urine Protein, UAD 2+ (Negative)
[2025-06-02 13:02] LABS: Alanine Aminotransferase 17 U/L (7-40); Albumin 4.2 g/dL (3.2-4.8); Alkaline Phosphatase 68 U/L (46-116); Anion Gap 7 (5-15); BUN/Creatinine Ratio 17.7 (10.0-20.0); Bilirubin, Total 0.4 mg/dL (0.2-1.0); Blood Urea Nitrogen 11 mg/dL (9-23); Calcium 9.3 mg/dL (8.7-10.4); Carbon Dioxide 30 mmol/L (20-31); Chloride 104 mmol/L (98-107); Glucose 82 mg/dL (74-106); Potassium 4.0 mmol/L (3.5-5.1); Prostate Specific Antigen 0.1 ng/mL (0.0-4.0); Sodium 141 mmol/L (136-145); Total Protein 6.8 g/dL (5.7-8.2)
[2025-06-02 13:06] LABS: Free T4 (Free Thyroxine) 1.02 ng/dL (0.89-1.76)
== END | disposition home or self-care (01) ==
LOC: LAB 12:10
PROVIDERS: ATTEND Internal Medicine
DX: Z11.59 Encounter for screening for other viral diseases (principal); Z00.01 Encounter for general adult medical examination with abnormal findings; Z79.899 Other long term (current) drug therapy
CPT/HCPCS: 36415; 80053; 81001; 82306; 83036; 84153; 84439; 84443; 85025; 86706; 86708; 86803; 87340; 87517

== ENCOUNTER 2025-07-27 13:49 | Outpatient (CLI) | payer MEDICAID ==
[2025-07-27 14:20] LABS: Urine Amorphous Crystal FEW /hpf (None Seen); Urine Protein, UAD Negative (Negative)
[2025-07-27 14:35] LABS: Alanine Aminotransferase 17 U/L (7-40); Albumin 3.8 g/dL (3.2-4.8); Alkaline Phosphatase 73 U/L (46-116); Anion Gap 7 (5-15); BUN/Creatinine Ratio 14.3 (10.0-20.0); Calcium 8.9 mg/dL (8.7-10.4); Carbon Dioxide 28 mmol/L (20-31); Potassium 4.3 mmol/L (3.5-5.1); Prostate Specific Antigen 0.09 ng/mL (0.0-4.0); Sodium 144 mmol/L (136-145); Total Protein 6.3 g/dL (5.7-8.2)
[2025-07-27 14:36] LABS: Bilirubin, Total 0.3 mg/dL (0.2-1.0); Blood Urea Nitrogen 9 mg/dL (9-23); Chloride 109 mmol/L (98-107); Glucose 107 mg/dL (74-106)
[2025-07-27 14:40] LABS: Free T4 (Free Thyroxine) 0.77 ng/dL (0.89-1.76)
[2025-07-28 12:10] LABS: Hepatitis A Total Antibody Negative (Negative); Hepatitis B Surface Antigen Negative (Negative); Hepatitis C Antibody Negative (Negative)
== END 2025-07-27 17:00 | disposition home or self-care (01) ==
LOC: LAB 13:49
PROVIDERS: ATTEND Internal Medicine
DX: Z11.59 Encounter for screening for other viral diseases (principal); Z00.01 Encounter for general adult medical examination with abnormal findings; Z79.899 Other long term (current) drug therapy
CPT/HCPCS: 36415; 80053; 81001; 82306; 83036; 84153; 84439; 84443; 86704; 86706; 86708; 86803; 87340; 87517

== ENCOUNTER 2025-08-23 06:31 | Day surgery (SDC) | payer MEDICAID ==
[~2025-08-23] VITALS: Ht 165.1 cm; Wt 52.2 kg
[2025-08-23] VITALS (8 sets, daily range): BP systolic 98–108; BP diastolic 52–69; PULSE 70–77; O2SAT 98–100
[~2025-08-23 06:31] MED LIST changes: +ATOR40TA52 PO; -PRAV20TA3 PO; -SACU1TAB PO
[2025-08-23] MEDS: IODIXANOL 320MG/ML 100ML BTL IV ONE (07:37)
[2025-08-23] MEDS: VERAPAMIL 2.5MG/ML INJ 2ML VIAL IV ONE (09:57)
[2025-08-23] MEDS: HEPARIN SODIUM (PORCINE) 5000 UNITS/ML 1ML VIAL ONE (09:57)
[2025-08-23] MEDS: ANGIOMAX 250 MG VIAL IV ONE (09:57)
[2025-08-23] MEDS: fentaNYL CITRATE 100 MCG/2 ML VL ONE (09:57)
[2025-08-23] MEDS: MIDAZOLAM HCL 2MG/2ML 2ml VIAL (1mg/ml) ONE (09:58)
[2025-08-23] MEDS: LIDOCAINE 2%HCL (LOCAL ANESTH.) INJ 20ML MDV ONE (09:58)
[2025-08-23] MEDS: SODIUM CHL 0.9% 0 ML ONE (09:58)
--- NOTE | 2025-08-23 11:52 | DVHOP2 ---
Operative Report Procedures performed: Left heart catheterization and bilateral coronary angiogram Moderate sedation Diagnosis: No angiographic evidence for epicardial coronary artery disease (normal coronaries) LVEF of 60% Cardiac suggestion for management: Optimized medical therapy Lifestyle and risk factor modification Findings: LVEF of 60% LVEDP: 14 mmhg Left main: coming off of left sinus of valsalva. It was free of disease LAD: LAD was coming off of Left main. It provided Moderate sized D1 and D2. LAD was free of disease throughout its course and branches LCx: LCx was coming off of left main. OM1 was a large caliber vessel. LCx itself continued as moderate sized OM2. LCx throughout its course and branches was free of disease. RCA: RCA was coming off of right sinus of valsalva. It did have a down looking ostium. It was the dominant vessel and provided RPDA. Proximal RCA was tortuous. RCA throughout its course and branches was free of disease Presentation: patient is 55 year old male who presented to office with chest pain and palpitations. PMH includes hypertension, GERD, CHF and active cigarette use. Echo of March 2025 revealed EF of 40 to 45%. Nuclear stress test of March/2025 was abnormal and patient was sent for cardiac catheterization Procedure: After obtaining informed consent, patient was sent to cathlab. She was prepped and draped in sterile fashion. Right radial artery was used for access site. Using Seldinger Technique, right radial artery was accessed and 6 somali slender sheath was put in the artery. 2.5 mg of verapamil and 100 mcg of Fentanyl were given as a cocktail into the radial sheath. 3500 unit of heparin were given peripherally. 5 somali [place] catheter was used to perform left heart catheterization (obtaining pressures and performing left ventriculography) and bilateral coronary angiogram. There was no indication for any transcatheter revascularization. Total bleeding was less than 5 ml. There was no dissection/hematoma/perforation. Patient tolerated the procedure with no complication. Right radial artery access site was managed by deploying a TR Band Fluoroscopy time: 3.4 minutes contrast: 65 ml of GRZEGORZ Farris MD Aug 23, 2025 11:51
== END 2025-08-23 12:45 | disposition home or self-care (01) ==
LOC: CATH 06:31
PROVIDERS: ATTEND Internal Medicine Cardiovascular Disease
DX: R07.9 Chest pain, unspecified (principal); R94.39 Abnormal result of other cardiovascular function study; I11.0 Hypertensive heart disease with heart failure; I50.9 Heart failure, unspecified; K21.9 Gastro-esophageal reflux disease without esophagitis; F17.210 Nicotine dependence, cigarettes, uncomplicated; F41.9 Anxiety disorder, unspecified; Z79.82 Long term (current) use of aspirin; Z79.899 Other long term (current) drug therapy; Z87.09 Personal history of other diseases of the respiratory system; Z82.49 Family history of ischemic heart disease and other diseases of the circulatory system; Z83.79 Family history of other diseases of the digestive system
CPT/HCPCS: 93458; C1894; J1644; J2250; J3010; J7040; Q9967; 99152